=== PATIENT | male | born 1945 | race Caucasian/White ===

== ENCOUNTER 2019-01-15 13:26 | Inpatient (IN) | payer MEDICARE ==
[~2019-01-15 13:26] MED LIST: ISOVUE-370 76%-LOCM 1 ML ONE
[2019-01-15 15:11] LABS: #Eosinphils 0.1 thou/uL (0.0-0.7); #Lymphocytes 0.5 thou/uL (1.20-3.40); #Monocytes 0.3 thou/uL (0.11-0.59); #Neutrophils 4.6 thou/uL (1.40-6.50); %Basophils 0.1 % (0.0-1.0); %Eosinophils 2.4 % (0.0-10.0); %Lymphocytes 8.6 % (21.0-51.0); %Monocytes 4.9 % (0.0-10.0); %Neutrophils 84.1 % (42.0-75.0); Hemoglobin 13.6 g/dL (14.0-18.0); Mean Corpuscular HGB CONC 31.8 g/dL (32.0-36.0); Mean Corpuscular Hemoglobin 29.4 pg (27.0-31.0); Mean Corpuscular Volume 92.6 fL (78.0-98.0); Platelet Count 193 thou/uL (130-400); RBC Distribution Width 17.9 % (11.5-14.5); Red Blood Cell (RBC) Count 4.61 mill/uL (4.70-6.10); White Blood Cell (WBC) Count 5.4 thou/uL (4.8-10.8)
[2019-01-15 15:24] LABS: ALT (SGPT) 7 U/L (8-55); AST (SGOT) 11 U/L (5-34); Albumin 4.5 g/dL (3.4-4.8); Alkaline Phosphatase 152 U/L (40-150); Anion Gap 21 mmol/L (10-20); BUN (Urea Nitrogen) 47 mg/dL (8.4-25.7); Bilirubin, Total 0.8 mg/dL (0.2-1.2); Calc. Creatinine Clearance 0 mL/min (70-130); Calcium 9.3 mg/dL (7.8-10.44); Carbon Dioxide 25 mmol/L (23-31); Chloride 93 mmol/L (98-107); Estimated GFR-MDRD 9; Globulin 4.8 g/dL (2.4-3.5); Glucose 201 mg/dL (83-110); Potassium 3.9 mmol/L (3.5-5.1); Protein, Total 9.3 g/dL (5.8-8.1); Sodium 135 mmol/L (136-145)
[2019-01-15 15:46] LABS: CKMB 2.2 ng/mL (0-6.6)
--- NOTE | 2019-01-15 15:58 | CT ---
CT ABDOMEN AND PELVIS: HISTORY: Abdominal pain and distention. FINDINGS: A small amount of fluid is noted at the left posterior pleural space, with some enhancement and thick ening of the visualized pleura. Parenchymal opacity at the left posteromedial lung base is favored t o represent compressive atelectasis. There is a moderate amount of free fluid throughout the abdomen and pelvis. The liver contour is mame ewhat nodular and irregular. The spleen measures up to 14.4 cm on the axial images. The prostate gl and measures up to 7.8 cm in width. No degenerative changes throughout the lumbar spine. Atrophy of each kidney. IMPRESSION: 1. Moderate amount of ascites. Other findings of portal vein hypertension include moderate splenome ketan and a cirrhotic appearance of the liver. 2. Small amount of left pleural fluid. 3. Thickening and enhancement of the pleura at the left inferior hemithorax raises concern for infla mmation. Clinical correlation regarding other signs and symptoms of infection/inflammation of the le ft pleural fluid is required. 4. Prominent atherosclerosis. 5. Enlarged prostate gland. POS: EMILY
[2019-01-15 19:28] VITALS: BMI 25.7
[2019-01-15] MEDS ORDERED: Acetaminophen 325 MG TAB PO PRN ×2 (19:30→20:00)
[2019-01-15] MEDS ORDERED: Ondansetron PF 4 MG/2 ML Vial IVP PRN ×2 (19:30→20:00)
[2019-01-15] MEDS ORDERED: Ondansetron ODT 4 MG TAB SL PRN (19:30)
[2019-01-15] MEDS ORDERED: Senokot S 8.6-50 MG TAB PO PRN (20:00)
[2019-01-15] MEDS ORDERED: Ondansetron ODT 4 MG TAB PO PRN (20:00)
[2019-01-15] MEDS ORDERED: Guaifenesin DM 100-10/5 ML UDCUP PO PRN (20:00)
[2019-01-15] MEDS ORDERED: Acetaminophen 650 MG Suppository PR PRN (20:00)
[2019-01-15] MEDS ORDERED: Dextrose 5% in Water 1,000 ML IV PRN (20:08)
[2019-01-15] MEDS ORDERED: Dextrose 50% Abboject 50 ML SYRINGE SLOW IVP PRN (20:08)
[2019-01-15] MEDS ORDERED: HumaLOG 300 UNITS/3 ML VIAL SC PRN ×2 (20:08)
[2019-01-15] MEDS: Insulin Glargine 14 UNITS in Pre-Filled Syringe 1 EACH SC SCH ×2 (21:22→21:27)
[2019-01-15] MEDS: Famotidine 20 MG TAB PO SCH (21:22)
[2019-01-15] MEDS: Docusate 100 MG CAP PO SCH (21:23)
--- NOTE | 2019-01-16 02:50 | HP ---
PRIMARY CARE PHYSICIAN: Dr. Dianelys Barragan. OUTPATIENT BOLT LABELER: Dr. Mujica. LOAN BROKER: Dr. Chavarria. CHIEF COMPLAINT: Abdominal swelling. HISTORY OF PRESENT ILLNESS: This is a 73-year-old white male with a known history of coronary artery disease with previous CABG and also end-stage renal disease, on regular hemodialysis. The patient reports that starting about Renny, he started to get increasing swelling in his abdomen, did not have any significant shortness of breath with this. He has had swelling in his lower extremities before from congestive heart failure, but has never had this severely in his abdomen by itself. He also has been feeling palpitations, fast heart rate and then slow heart rate and then fast heart rate alternating ever since Renny time as well. He has had less energy than normal. He went to Dr. Mujica clinic today and was found to be in new onset atrial fibrillation along with having significant ascites and so Dr. Mujica sent him to the emergency room. In the ER, he had a CT of abdomen and pelvis, which showed moderate ascites along with evidence of cirrhosis of the liver. PAST MEDICAL HISTORY: 1. Coronary artery disease. 2. End-stage renal disease, on dialysis. 3. Diabetes mellitus type 2, insulin dependent. 4. Gout. 5. Hypertension. 6. Hyperlipidemia. CURRENT MEDICATIONS: The patient had a medicine list which was copied in the emergency room, but does not have it with him now. Per the ER chart, which I am not certain is accurate, he takes; 1. Allopurinol 300 mg 0.5 tablet daily. 2. Aspirin 81 mg a day. 3. Cardura 8 mg daily. 4. Colchicine 0.6 mg listed as q.4 hours p.r.n. 5. Imdur 60 mg daily. 6. Lantus 14 units each night. 7. Lipitor 20 mg daily. 8. Nifedipine 60 mg daily. 9. Calcium acetate daily. 10. Lutein 20 mg daily. ALLERGIES: EGGS. PAST SURGICAL HISTORY: 1. CABG. 2. Fistula placement. FAMILY HISTORY: Relevant for coronary artery disease. SOCIAL HISTORY: The patient is retired. He is , lives with his . He has a remote history of tobacco, quit more than 40 years ago. No alcohol or illicit drug use. REVIEW OF SYSTEMS: CONSTITUTIONAL: No fevers. He does get cold all the time, especially gets some chills in the morning when his blood sugar drops into the 70s and he feels best when it is around 100. EYES: No double vision or new blurred vision. He did have some worsening of his vision over the last year from cataracts. ENT: No congestion, drainage, or sore throat. CARDIOVASCULAR: See HPI. No chest pain. Just irregular heart rate. PULMONARY: No coughing, wheezing, or shortness of breath. GASTROINTESTINAL: Abdominal distention as per HPI. No nausea or vomiting. No abdominal pain. No diarrhea. He has had a little constipation recently. GENITOURINARY: Still produces a little bit of urine. No dysuria or hematuria. MUSCULOSKELETAL: He has had a little bit of low back pain recently without any radicular symptoms. No muscle aches or joint pains otherwise. SKIN: No rashes or other lesions noted. NEUROLOGIC: No numbness, tingling, or focal weakness. PHYSICAL EXAMINATION: VITAL SIGNS: Blood pressure 164/81, pulse 102, respirations 16, O2 saturation 98% on room air, and temperature 98.3. GENERAL: This is a well-developed, thin white male, in no acute distress. HEENT: Pupils are equal, round, and reactive to light. Oropharynx clear without lesions, erythema, or exudate. NECK: Supple. No lymphadenopathy. No thyroid nodules or enlargement. No severe JVD. HEART: Irregularly irregular rhythm running out on average about 100 beats per minute with 2/6 systolic ejection murmur. LUNGS: Clear to auscultation bilaterally. No wheezes, crackles, or rhonchi. ABDOMEN: Soft, distended with positive fluid wave. Nontender to palpation. No organomegaly or other masses. Normoactive bowel sounds. EXTREMITIES: He has just trace edema to bilateral shins. Good pulses throughout. He is able to move all of his extremities well. SKIN: No rashes or other lesions noted. NEUROLOGIC: He has intact strength and sensation in all extremities. No facial droop. LABORATORY DATA: CBC grossly within normal limits. Complete metabolic panel notable for a sodium of 135, chloride of 93, anion gap of 21, BUN of 47, creatinine of 6.01, and glucose of 201. Bilirubin is normal. Alkaline phosphatase is 152. AST and ALT are normal. Total serum protein is elevated at 9.3, albumin is 4.5. Lactic acid was negative. Troponin was indeterminate at 0.203. CT of abdomen and pelvis with contrast did show moderate ascites, other findings of portal vein hypertension including moderate splenomegaly and a cirrhotic appearance to the liver with small amount of left pleural fluid and thickening enhancement of the pleura of the left inferior hemothorax, concerning for possible inflammation, primary atherosclerosis and large prostate gland. ASSESSMENT: 1. New onset ascites, possibly related to cirrhotic appearing liver though his albumin and bilirubin are normal. He does not have any significant sequelae of cirrhosis on his blood work. It is also very likely that this actually is more of a sequela of chronic congestive heart failure that has been exacerbated by his atrial fibrillation. I will go ahead and have Dr. Mason consult and see the patient and the patient may end up needing further investigations such as a liver biopsy. 2. New onset atrial fibrillation, currently not in a terribly rapid rate. We will continue the patient's current medications for now and we will have Dr. Mujica consult and continue working up this new problem. Given the patient is in diastolic congestive heart failure exacerbation from this, he may benefit from cardioversion. We will leave choice of anticoagulation up to Dr. Mujica. 3. End-stage renal disease, on dialysis. We will consult Dr. Chavarria for continued dialysis. 4. Coronary artery disease with previous coronary artery bypass graft. The patient does have an indeterminate troponin, likely related to his end-stage renal disease. He has no evidence of acute ischemia at this time. 5. Likely diastolic congestive heart failure. We will get an ECHO and consult Dr. Mujica. 6. Hypertension. We will resume the patient's antihypertensives. 7. Hyperlipidemia. We will resume the patient's statin. 8. Gout. We will resume the patient's allopurinol and colchicine. 9. Gastrointestinal prophylaxis. We will put the patient on Pepcid twice a day. 10. Deep venous thrombosis prophylaxis. We will put the patient on sequential compression devices while in bed. 11. Code status. I did discuss this with the patient. He is a full code. His would be his next of kin, her name is Frances Sanchez. There appeared to be some disagreement between them about the code status and also him getting dialysis in general. We will go ahead and have Palliative Care consulted to come talk with him and more further and make certain about his wishes and his medical power of associate attorney. Job ID: [id number] [facility]
[2019-01-16 04:41] LABS: #Eosinphils 0.3 thou/uL (0.0-0.7); #Lymphocytes 0.5 thou/uL (1.20-3.40); #Monocytes 0.3 thou/uL (0.11-0.59); #Neutrophils 3.7 thou/uL (1.40-6.50); %Basophils 0.1 % (0.0-1.0); %Lymphocytes 10.6 % (21.0-51.0); %Monocytes 6.4 % (0.0-10.0); %Neutrophils 75.9 % (42.0-75.0); Hemoglobin 11.7 g/dL (14.0-18.0); Mean Corpuscular HGB CONC 32.1 g/dL (32.0-36.0); Mean Corpuscular Hemoglobin 29.7 pg (27.0-31.0); Mean Corpuscular Volume 92.3 fL (78.0-98.0); Mean Platelet Volume 8.6 fL (7.4-10.4); Platelet Count 159 thou/uL (130-400); RBC Distribution Width 17.7 % (11.5-14.5); Red Blood Cell (RBC) Count 3.94 mill/uL (4.70-6.10); White Blood Cell (WBC) Count 4.9 thou/uL (4.8-10.8)
[2019-01-16 05:07] LABS: Anion Gap 17 mmol/L (10-20); BUN (Urea Nitrogen) 52 mg/dL (8.4-25.7); Calc. Creatinine Clearance 12 mL/min (70-130); Calcium 8.5 mg/dL (7.8-10.44); Carbon Dioxide 25 mmol/L (23-31); Chloride 98 mmol/L (98-107); Estimated GFR-MDRD 8; Glucose 138 mg/dL (83-110); Potassium 4.3 mmol/L (3.5-5.1); Sodium 136 mmol/L (136-145)
[2019-01-16] MEDS ORDERED: Atorvastatin Calcium 10 MG TAB PO SCH (09:00)
[2019-01-16] MEDS: Docusate 100 MG CAP PO SCH ×2 (09:06→21:01)
--- NOTE | 2019-01-16 09:08 | PDOC.PN ---
- Subjective Encounter Start Date: 01/16/19 Encounter Start Time: 10:30 Subjective: Patient without complaint. No SOB. No chest pain. - Objective Resuscitation Status - Order Detail: 01/15/19 19:54 Resuscitation Status Routine Resuscitation Status: FULL: Full Resuscitation Discussed with: Vadim MCWILLIAMS Reviewed: Yes Vital Signs & Weight: Vital Signs (12 hours) Temp Pulse Resp BP Pulse Ox 01/16/19 08:00 98.1 F 52 L 16 120/60 95 01/16/19 03:29 98.8 F 80 20 128/70 93 L Weight Weight 179 lb 8 oz Result Diagrams: 01/16/19 04:20 01/16/19 04:20 Additional Labs: Accuchecks 01/16/19 01/15/19 05:29 20:39 POC Glucose 153 H 179 H Phys Exam - Physical Examination Constitutional: NAD HEENT: moist MMs Respiratory: no wheezing, no rales, no rhonchi Cardiovascular: no significant murmur, irregular Gastrointestinal: non-tender, positive bowel sounds distended, positive fluid wave Neurological: non-focal, moves all 4 limbs Psychiatric: normal affect, A&O x 3 Dx/Plan (1) Cirrhosis of liver with ascites Code(s): K74.60 - UNSPECIFIED CIRRHOSIS OF LIVER; R18.8 - OTHER ASCITES Status : Acute Qualifiers: Hepatic cirrhosis type: unspecified hepatic cirrhosis Qualified Code(s): K74.60 - Unspecified cirrhosis of liver; R18.8 - Other ascites Comment: Dr. Mason consulted, paracentesis with fluid studies ordered (2) New onset atrial fibrillation Code(s): I48.91 - UNSPECIFIED ATRIAL FIBRILLATION Status: Acute Comment: Dr. Mujica consulted, ECHO pending, plan for pacemaker today (3) Diastolic congestive heart failure Code(s): I50.30 - UNSPECIFIED DIASTOLIC (CONGESTIVE) HEART FAILURE Status: Chronic Qualifiers: Heart failure chronicity: acute on chronic Qualified Code(s): I50.33 - Acute on chronic diastolic (congestive) heart failure (4) Hypertension Code(s): I10 - ESSENTIAL (PRIMARY) HYPERTENSION Status: Chronic (5) Hyperlipidemia Code(s): E78.5 - HYPERLIPIDEMIA, UNSPECIFIED Status: Chronic (6) Gout Code(s): M10.9 - GOUT, UNSPECIFIED Status: Chronic - Plan cont current plan of care, PT/OT, DVT proph w/SCDs * . - Discharge Day Encounter end time: 10:40
[2019-01-16 09:36] LABS: INR-International Normal Ratio 1.2; Prothrombin Time 15.2 SEC (12.0-14.7)
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
[2019-01-16] MEDS ORDERED: Iopamidol 370 76% 50 ML VIAL FS ONE (10:38)
[2019-01-16 11:20] LABS: HBSAg Index 0.27 S/CO (0-0.99); Hep B Surf Ag Non-Reactive S/CO (NonReactive)
[2019-01-16] MEDS ORDERED: Gentamicin 80 MG/2 ML VIAL ONE (14:14)
[2019-01-16] MEDS ORDERED: CEFAZOLIN 1 GM VIAL ONE (14:14)
[2019-01-16] MEDS ORDERED: Lidocaine 1% (PF) 30 ML VIAL ONE (15:56)
[2019-01-16] MEDS: NIFEdipine XL 60 MG TAB PO SCH (16:39)
[2019-01-16] MEDS: Doxazosin Mesylate 4 MG TAB PO SCH (16:39)
[2019-01-16] MEDS: Allopurinol 300 MG TAB PO SCH (16:39)
[2019-01-16] MEDS: Aspirin 81 mg Enteric Coated Tablet PO SCH (16:39)
--- NOTE | 2019-01-16 17:58 | RAD ---
CHEST ONE VIEW: 01/16/19 INDICATION: History of cardiac device placement. COMPARISON: Prior exam dated 09/18/14. FINDINGS: There is a dual lead pacemaker along the right chest wall. No pneumothorax is evident. There is a sma ll left pleural effusion and left basilar air space opacity which is nonspecific. The patient had a l eft sided pleural effusion on the comparison examination on 09/18/14. This was seen on a comparison C T dated 01/15/19. There is some opacity within the right lower lobe which may reflect rounded atelecta sis or pneumonia. Continued radiographic followup is recommended. IMPRESSION: 1. Interval placement of a right sided pacemaker. 2. Persistent small left pleural effusion with a left basilar air space opacity may reflect atel ectasis or pneumonia. Continued radiographic followup is recommended. 3. No pneumothorax demonstrated. POS: CORNEL
--- NOTE | 2019-01-16 18:11 | CCL ---
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 He was advised to undergo dual-chamber pacemaker inser tion. He was taken to cardiac lab specialist where he underwent the procedure today without difficulties or compl ications. He was implanted on the right infraclavicular area as the patient has a shunt on the left side. He tolerated the procedure well. There were no difficulties or complications encountered. He wa s implanted with a dual chamber pacemaker from [employer], an [place] XT which is MRI compatible device with atrial therapies. The pacemaker was set with the upper rate was set at 130. The lower rate was s et at 60. There were no difficulties or complications encountered.
[2019-01-16] MEDS: Atorvastatin Calcium 10 MG TAB PO SCH (21:00)
[2019-01-16] MEDS: HYDROcodone/Acetaminophen 5/325 mg Tablet PO PRN (21:00)
[2019-01-16] MEDS: Famotidine 20 MG TAB PO SCH (21:00)
[2019-01-16] MEDS: Insulin Glargine 14 UNITS in Pre-Filled Syringe 1 EACH SC SCH (21:02)
[2019-01-17] MEDS: HYDROcodone/Acetaminophen 5/325 mg Tablet PO PRN ×4 (03:01→19:28)
--- NOTE | 2019-01-17 03:08 | CON ---
DATE OF CONSULTATION: 01/16/2019 REASON FOR CONSULTATION: New onset ascites, possible cirrhosis. CONSULTING PHYSICIAN: Dr. Parth Alarcon. HISTORY OF PRESENT ILLNESS: The patient is a 73-year-old male with past medical history of coronary artery disease status post CABG, end-stage renal disease on hemodialysis, diabetes, gout, hypertension, and hyperlipidemia, presenting with increased abdominal distention and ascites. He states that he was in his usual state of health until October 2018 when he began to experience increased abdominal distention that has progressively worsened over the last 2 months. With this increased abdominal distention, he has also experienced an increased weight gain despite hemodialysis and the removal of approximately 2 L of fluid per episode of hemodialysis. He does endorse some increased dysphagia during the same time, characterized this sensation, the food is getting stuck in the back of his mouth when he attempts to eat larger bites of food. However, when he does adequately chew his food or consume in smaller bites, he does not experience any increased dysphagia. He does have associated increase change in his voice as well as rare episodes of heartburn during the same time. He also endorses increased bilateral lower extremity edema and swelling in his feet over the last 2 to 3 months as well. He denies any significant use of alcohol, consuming approximately 1 to 2 beers every 6 months. He denies any recent medication changes, that might further contribute to his current clinical situation. He currently denies any nausea, vomiting, fever, chills, GI bleeding, odynophagia, diarrhea, constipation, encephalopathy, or jaundice. REVIEW OF SYSTEMS: A 10-category review of systems was obtained with all responses negative except for the pertinent positives as listed in HPI. PAST MEDICAL HISTORY: As per HPI. PAST SURGICAL HISTORY: CABG and upper extremity arteriovenous fistula placement. SOCIAL HISTORY: Denies any tobacco or illicit drug use. Drinks approximately 1 to 2 beers every 6 months. FAMILY HISTORY: Denies any GI malignancies. OUTPATIENT MEDICATIONS: Reviewed. ALLERGIES: EGGS. PHYSICAL EXAMINATION: VITAL SIGNS: Temperature 97.8, pulse 84, blood pressure 144/67, respiratory rate 20, and saturating 93% on room air. GENERAL: The patient is lying in bed, in no acute distress. Alert and oriented x4. NECK: Supple. HEENT: Normocephalic, atraumatic. CARDIOVASCULAR: Regular rate and rhythm with no discernible murmurs, gallops, or rubs. RESPIRATORY: Clear to auscultation bilaterally with no discernible wheezes or rales. ABDOMEN: Normoactive bowel sounds. Soft, nontender to palpation, but increased abdominal distention with positive shifting dullness. EXTREMITIES: Trace bilateral lower extremity edema extending to the mid oliva. No cyanosis or clubbing. LABORATORY DATA: CBC with a white blood cell count of 4.9, Hemoglobin 11.7, hematocrit 36.4, platelets 159, and INR 1.2. Chemistry with a sodium of 136, potassium 4.3, chloride 98, CO2 of 25, BUN 52, creatinine 6.68, glucose 138, AST 11, ALT 7, alkaline phosphatase 152, and total bilirubin 0.8. IMAGING DATA: CT of the abdomen and pelvis obtained on January 15, 2019, showed a moderate amount of free fluid within the abdomen consistent with ascites. There was also a change in the liver contour that was nodular and irregular concerning for the presence of cirrhosis. Also seen was a small amount of left-sided pleural fluid and thickening and enhancement of the pleura of the left inferior hemithorax raising concern for inflammation or infection. ASSESSMENT AND PLAN: The patient is a 73-year-old male with past medical history of coronary artery disease status post coronary artery bypass grafting, end-stage renal disease on hemodialysis, diabetes, gout, hypertension, and hyperlipidemia, presenting with new onset ascites and a liver morphology on imaging concerning for cirrhosis. New onset ascites. The patient is presenting with a history of increased abdominal distention, increased weight, and increased lower extremity edema that has been present since October 2018. On admission to the ER here at [facility], he had a CT scan performed that showed irregular and nodular contours to the liver, concerning for the presence of cirrhosis. However, he does also have a concurrent history of coronary artery disease, as well as end-stage renal disease, which could contribute to the presence of ascites seen on both imaging and physical examination today. At this time, the differential could include cirrhosis of the liver (albeit unlikely given preserved hepatic function with normal T bilirubin and normal albumin), end-stage renal disease with hemodialysis could contribute to his ascites, nephrotic syndrome, congestive heart failure, congestive hepatopathy, infectious etiology (unlikely), and/or GI neoplasm. RECOMMENDATIONS: 1. We would obtain a paracentesis with evaluation of the ascites fluid for albumin, protein, cell count, and culture to help further characterize this ascites and help narrowing the possibility/differential of causative etiologies. 2. We would continue low-sodium diet to prevent further formation of ascites. 3. We would work in conjunction with inpatient lion tamer given that the ascitic fluid would most likely be best drawn off during hemodialysis. 4. We would continue to trend LFTs daily for possible liver dysfunction as well as INR. 5. If the ascites fluid is consistent with portal hypertension, I would then proceed with a full liver workup at that time to evaluate the origin of cirrhosis of the liver. 6. We will continue to follow. Please call with any questions. Job ID: [id number]
--- NOTE | 2019-01-17 07:12 | PRG ---
DATE OF SERVICE: 01/17/2019 SERVICE: Renal Medicine. SUBJECTIVE: Mr. Hernandez is a 73-year-old white male with ESRD, was admitted for new onset ascites. He was found on imaging to have a cirrhosis. GI consult has been done. In the interim, he also had a pacemaker placed. He underwent hemodialysis yesterday without any difficulty. The plan today is for him to undergo a diagnostic paracentesis. The patient voices no new complaints. He denies any chest pain or shortness of breath. OBJECTIVE: VITAL SIGNS: Blood pressure is 143/69, heart rate 60, respiratory rate 15, temperature 98.6, and pulse ox 96%. GENERAL: Awake, alert, comfortable, not in distress. SKIN: Adequate turgor. HEENT: Pinkish conjunctivae. Anicteric sclerae. No neck mass. No carotid bruits. No JVD. CHEST: No deformities. LUNGS: Clear breath sounds. No wheezing. No crackles. HEART: Normal sinus rhythm. No murmur. No gallops. No rubs. ABDOMEN: Globular, soft, nontender. No masses. Positive for ascites. EXTREMITIES: No edema. MEDICATIONS: Medications of January 17, 2019, were reviewed. LABORATORY DATA: Laboratories of January 16, 2019; white count 4.9, hemoglobin 11.7. Sodium 136, potassium 4.3, chloride 98, carbon dioxide 25, BUN 52, creatinine 6.68, glucose 138, and calcium 8.5. ASSESSMENT AND PLAN: 1. New onset ascites/cirrhosis-GI evaluating the patient. He is scheduled for diagnostic paracentesis. 2. Cardiac arrhythmias-the patient is status post pacemaker placement. 3. End-stage renal disease, stable. We will continue three times a week hemodialysis. No heparin will be used. Fluid removal again as tolerated by the patient. We will recheck basic metabolic, CBC in a.m. Job ID: [id number]
[2019-01-17] MEDS: NIFEdipine XL 60 MG TAB PO SCH (08:24)
[2019-01-17] MEDS ORDERED: Sodium Bicarbonate 2.5 MEQ/5 ML VIAL ONE (08:57)
[2019-01-17] MEDS: Allopurinol 300 MG TAB PO SCH (09:49)
[2019-01-17] MEDS: Docusate 100 MG CAP PO SCH ×2 (09:51→21:17)
[2019-01-17] MEDS: Doxazosin Mesylate 4 MG TAB PO SCH (09:51)
[2019-01-17] MEDS: Aspirin 81 mg Enteric Coated Tablet PO SCH (09:54)
[2019-01-17 10:58] LABS: HBSAg Index 0.25 S/CO (0-0.99); Hep A IgM AB Non-Reactive (NonReactive); Hep B Surf Ag Non-Reactive S/CO (NonReactive); Hep C IgG Ab Non-Reactive (NonReactive); Hep C Index 0.06 S/CO (0-0.79); Hepatitis B Core IgM Abs Non-Reactive (NonReactive)
--- NOTE | 2019-01-17 12:09 | ULT ---
ULTRASOUND GUIDED PARACENTESIS: CLINICAL INDICATION: Ascites. PROCEDURE: After informed consent had been obtained, the patient was escorted to the ultrasound suite and placed in a supine position. The abdomen was imaged which revealed adequate ascites for the procedure. Th e skin of the abdomen was then prepped and draped in the standard sterile fashion and the skin surfac e, subcutaneous tissues, and peritoneal lining of the abdomen were anesthetized with 1% Lidocaine buf fered with sodium bicarbonate. A right lower quadrant approach was selected. A small skin incision was made at the site of topical anesthesia. Subsequently, under real-time ultrasound guidance a IV Diagnostics catheter was advanced through the incision site into the peritoneal cavity. Ascites was present at the catheter hub. The catheter was then secured to vacuum sealed sterile containers, via sterile tub ing and subsequently 4 L of clear, yellow ascites was drained from the patient. The patient was then removed from the patient. The patient tolerated the procedure well without evidence of complication . Postprocedure imaging revealed no complication and interval reduction in volume of ascites. The p atient was monitored by a radiology nurse and was stable in condition. Specimen was sent to laboratory for analysis per ordering physician request. IMPRESSION: Technically successful ultrasound-guided paracentesis, as above. POS: [facility]
[2019-01-17 13:45] LABS: BF Color Yellow; BF RBC Count - Manual 35 /cumm; BF WBC/Nonhematics Ct. - Manua 140 /cumm; Body Fluid Source Peritoneal Fluid; Clarity Hazy (Clear); Tube # EDTA
[2019-01-17 13:49] LABS: BF Segmented Neutrophils 5 %; Cell Count Non Hematic 78 %; Eosinophils 1 %; Lymphocytes 14 %
--- NOTE | 2019-01-17 14:08 | PDOC.PN ---
- Subjective Encounter Start Date: 01/17/19 Encounter Start Time: 08:45 Subjective: feels better after paracentesis -: no dizzines or abd pain - Objective Resuscitation Status - Order Detail: 01/15/19 19:54 Resuscitation Status Routine Resuscitation Status: FULL: Full Resuscitation Discussed with: Patient POPPY Reviewed: Yes Vital Signs & Weight: Vital Signs (12 hours) Temp Pulse Pulse Pulse Resp BP BP 01/17/19 11:10 98.0 F 69 17 01/17/19 11:00 68 69 141/67 H 01/17/19 09:50 97.8 F 61 17 01/17/19 08:24 62 189/83 H 01/17/19 08:20 97.7 F 62 17 01/17/19 03:55 98.6 F 60 15 BP BP Pulse Ox 01/17/19 11:10 143/59 H 96 01/17/19 11:00 143/59 H 01/17/19 09:50 180/81 H 97 01/17/19 08:24 01/17/19 08:20 189/83 H 96 01/17/19 03:55 143/69 H 96 Weight Weight 179 lb 8 oz I&O: 01/16/19 01/17/19 01/18/19 06:59 06:59 06:59 Intake Total 480 Output Total 50 Balance 430 Result Diagrams: 01/16/19 04:20 01/16/19 04:20 Additional Labs: Accuchecks 01/17/19 01/17/19 01/17/19 11:15 08:08 05:52 POC Glucose 101 71 76 01/16/19 01/16/19 20:45 17:25 POC Glucose 221 H 126 H Phys Exam - Physical Examination HEENT: PERRLA, moist MMs Neck: no JVD, supple Respiratory: no wheezing, no rales Cardiovascular: RRR, no significant murmur Gastrointestinal: soft, non-tender, positive bowel sounds Musculoskeletal: pulses present, edema present Neurological: non-focal, moves all 4 limbs Psychiatric: normal affect, A&O x 3 Dx/Plan (1) Tachy-jaimee syndrome Code(s): I49.5 - SICK SINUS SYNDROME Status: Acute Comment: s/p dual chamber medtronic [place] XT mri compatible pcm (2) ESRD (end stage renal disease) on dialysis Code(s): N18.6 - END STAGE RENAL DISEASE; Z99.2 - DEPENDENCE ON RENAL DIALYSIS Status: Chronic (3) Afib Code(s): I48.91 - UNSPECIFIED ATRIAL FIBRILLATION Status: Acute Qualifiers: Atrial fibrillation type: paroxysmal Qualified Code(s): I48.0 - Paroxysmal atrial fibrillation (4) CAD (coronary artery disease) Code(s): I25.10 - ATHSCL HEART DISEASE OF [place] CORONARY ARTERY W/O ANG PCTRS Status: Chronic Qualifiers: Coronary Disease-Associated Artery/Lesion type: bypass graft [place] vs. transplanted heart: [place] heart Associated angina: without angina Qualified Code(s): I25.810 - Atherosclerosis of coronary artery bypass graft(s) without angina pectoris (5) Demand ischemia of myocardium Code(s): I24.8 - OTHER FORMS OF ACUTE ISCHEMIC HEART DISEASE Status: Acute (6) Cirrhosis of liver with ascites Code(s): K74.60 - UNSPECIFIED CIRRHOSIS OF LIVER; R18.8 - OTHER ASCITES Status : Chronic Qualifiers: Hepatic cirrhosis type: unspecified hepatic cirrhosis Qualified Code(s): K74.60 - Unspecified cirrhosis of liver; R18.8 - Other ascites Comment: s/p paracentesis with removal of 4 liters 01/17/2019 (7) Diastolic congestive heart failure Code(s): I50.30 - UNSPECIFIED DIASTOLIC (CONGESTIVE) HEART FAILURE Status: Chronic Qualifiers: Heart failure chronicity: acute on chronic Qualified Code(s): I50.33 - Acute on chronic diastolic (congestive) heart failure (8) Gout Code(s): M10.9 - GOUT, UNSPECIFIED Status: Chronic Qualifiers: Gout site: unspecified site Gout etiology: unspecified cause (9) Hyperlipidemia Code(s): E78.5 - HYPERLIPIDEMIA, UNSPECIFIED Status: Chronic Qualifiers: Hyperlipidemia type: mixed hyperlipidemia Qualified Code(s): E78.2 - Mixed hyperlipidemia (10) Hypertension Code(s): I10 - ESSENTIAL (PRIMARY) HYPERTENSION Status: Chronic Qualifiers: Hypertension type: essential hypertension Qualified Code(s): I10 - Essential (primary) hypertension - Plan w/u for ascites is ongoing, no signs of hepatitis -: continue toprol xl, procardia xl, asp, lipitor, imdur -: allopurinol, cardura and lantus -: to amb as tolerated -: had HD yesterday * . Review of Systems - Medications/Allergies Allergies/Adverse Reactions: Allergies Allergy/AdvReac Type Severity Reaction Status Date / Time egg Allergy Verified 12/26/13 21:31 No Known Drug Allergies Allergy Verified 12/26/13 21:31 Medications: Current Medications Acetaminophen (Tylenol) 650 mg PO Q4H PRN PRN Reason: Headache/Fever/Mild Pain (1-3) Acetaminophen (Tylenol) 650 mg DE Q4H PRN PRN Reason: Headache/Fever/Mild Pain (1-3) Hydrocodone Bitart/Acetaminophen ([place] 5/325) 1 tab PO Q4H PRN PRN Reason: Mild Pain (1-3) Last Admin: 01/17/19 12:43 Dose: 1 tab Allopurinol (Zyloprim) 150 mg PO DAILY [facility] Last Admin: 01/17/19 09:49 Dose: 150 mg Amiodarone HCl (Cordarone) 400 mg PO BID [facility] Aspirin (Ecotrin) 81 mg PO DAILY [facility] Last Admin: 01/17/19 09:54 Dose: 81 mg Atorvastatin Calcium (Lipitor) 10 mg PO [facility] Last Admin: 01/16/19 21:00 Dose: 10 mg Dextrose/Water (Dextrose 50%) 25 gm SLOW IVP PRN PRN PRN Reason: Hypoglycemia Docusate Sodium (Colace) 100 mg PO BID [facility] Last Admin: 01/17/19 09:51 Dose: Not Given Doxazosin Mesylate (Cardura) 8 mg PO DAILY [facility] Last Admin: 01/17/19 09:51 Dose: 8 mg Famotidine (Pepcid) 20 mg PO QPM [facility] Last Admin: 01/16/19 21:00 Dose: 20 mg Glucagon (Glucagon) 1 mg IM PRN PRN PRN Reason: Hypoglycemia Guaifenesin/Dextromethorphan (Robitussin Dm) 15 ml PO Q4H PRN PRN Reason: Cough Insulin Glargine 14 units/ (Miscellaneous Medication) 0.14 mls @ 0 mls/hr SC [facility] Last Admin: 01/16/19 21:02 Dose: 0.11 mls Dextrose/Water (D5w) 1,000 mls @ 0 mls/hr IV .Q0M PRN PRN Reason: Hypoglycemia Insulin Human Lispro (Humalog) 0 units SC .MILD SLIDING SCALE PRN PRN Reason: Mild Correctional Scale Insulin Human Lispro (Humalog) 0 units SC .BEDTIME SLIDING SC PRN PRN Reason: Bedtime Correctional Scale Isosorbide Mononitrate (Imdur) 60 mg PO DAILY [facility] Last Admin: 01/17/19 09:54 Dose: 60 mg Nifedipine (Procardia Xl) 60 mg PO DAILY [facility] Last Admin: 01/17/19 08:24 Dose: 60 mg Ondansetron HCl (Zofran Odt) 4 mg PO Q6H PRN PRN Reason: Nausea/Vomiting Ondansetron HCl (Zofran) 4 mg IVP Q6H PRN PRN Reason: Nausea/Vomiting Senna/Docusate Sodium (Senokot S) 2 tab PO BID PRN PRN Reason: Constipation Sodium Chloride (Flush - Normal Saline) 10 ml IVF Q12HR [facility] Last Admin: 01/17/19 09:55 Dose: 10 ml Sodium Chloride (Flush - Normal Saline) 10 ml IVF PRN PRN PRN Reason: Saline Flush
--- NOTE | 2019-01-17 17:03 | EKG ---
Test Reason : Blood Pressure : / mmHG Vent. Rate : 061 BPM Atrial Rate : 061 BPM P-R Int : 112 ms QRS Dur : 168 ms QT Int : 552 ms P-R-T Axes : 071 -70 097 degrees QTc Int : 555 ms AV sequential or dual chamber electronic pacemaker When compared with ECG of 15-JAN-2019 13:33, (Unconfirmed) Electronic ventricular pacemaker has replaced Atrial flutter Vent. rate has decreased BY 47 BPM Confirmed by KENNEDI BLOOM ([id number]) on 01/17/2019 5:02:40 PM Referred By: LUIZA Confirmed By:KENNEDI BLOOM
[2019-01-17] MEDS: Famotidine 20 MG TAB PO SCH (21:17)
[2019-01-17] MEDS: Atorvastatin Calcium 10 MG TAB PO SCH (21:18)
[2019-01-17] MEDS: Amiodarone 200 MG TAB PO SCH (21:18)
[2019-01-17] MEDS: Insulin Glargine 14 UNITS in Pre-Filled Syringe 1 EACH SC SCH (21:20)
--- NOTE | 2019-01-17 23:21 | PRG ---
DATE OF SERVICE: 01/17/2019 REASON FOR CONSULTATION: New onset ascites. SUBJECTIVE: The patient underwent paracentesis today with removal of approximately 4 L of ascitic fluid that was sent for analysis. After the paracentesis, he states that he is feeling much better. Currently, he denies any nausea, vomiting, fever, chills, diarrhea, constipation, or abdominal pain. OBJECTIVE: VITAL SIGNS: Temperature 97.6, pulse 61, blood pressure 129/61, respiratory rate 14, saturating 100% on room air. GENERAL: The patient was sitting at bedside, in no acute distress. Alert and oriented x4. CARDIOVASCULAR: Regular rate and rhythm. RESPIRATORY: Clear to auscultation bilaterally. ABDOMEN: Normoactive bowel sounds. Soft, nontender to palpation. [id number] abdominal distention with positive shifting dullness. EXTREMITIES: Trace bilateral lower extremity edema extending to mid oliva. LABORATORY DATA: Analysis of the peritoneal fluid yielded a white blood cell count of 140, of which 5% were PMNs. Fluid albumin is still pending at this time but total protein was noted at 4.7, which is relatively high. ASSESSMENT AND PLAN: The patient is a 73-year-old male with past medical history of coronary artery disease status post coronary artery bypass grafting, end-stage renal disease on hemodialysis, diabetes, gout, hypertension and hyperlipidemia, presenting with new onset ascites and liver morphology of imaging concerning for cirrhosis, but paracentesis fluid indicating a more cardiac etiology. New onset ascites. The patient is presenting with a history of increased abdominal distention, increased weight, and increased lower extremity edema that has been present since October 2018. On admission to [facility] during this admission, he was noted to have an irregular contour to the liver, concerning for the presence of cirrhosis. However, the patient underwent paracentesis on January 17, 2019, which was negative for the presence of SBP and also had a high fluid protein count more consistent with congestive heart failure rather than portal hypertension. At this time, based on the fluid analysis of the ascitic fluid, his new onset ascites is more likely due to congestive heart failure, which is also seen in his preserved hepatic function. Given the cirrhotic morphology on imaging, he may have an element of congestive hepatopathy related to congestive heart failure but at this time, I do not think this is the likely etiology for his ascites. RECOMMENDATIONS: 1. We would continue a low-sodium diet to prevent further formation of ascites from any etiology. 2. Given his history of end-stage renal disease, further fluid removal of his ascitic fluid would be best achieved through hemodialysis. 3. Given the higher likelihood of a cardiac origin of his ascites, a full liver workup is not indicated at this time. We will sign off at this time. Please call with any additional questions. Job ID: [id number]
[2019-01-18] MEDS: HYDROcodone/Acetaminophen 5/325 mg Tablet PO PRN ×3 (01:44→21:14)
[2019-01-18 06:23] LABS: #Eosinphils 0.4 thou/uL (0.0-0.7); #Lymphocytes 0.5 thou/uL (1.20-3.40); #Monocytes 0.5 thou/uL (0.11-0.59); #Neutrophils 4.2 thou/uL (1.40-6.50); %Basophils 0.7 % (0.0-1.0); %Eosinophils 6.7 % (0.0-10.0); %Lymphocytes 9.5 % (21.0-51.0); %Monocytes 8.4 % (0.0-10.0); %Neutrophils 74.7 % (42.0-75.0); Hemoglobin 10.2 g/dL (14.0-18.0); Mean Corpuscular HGB CONC 32.4 g/dL (32.0-36.0); Mean Corpuscular Hemoglobin 30.2 pg (27.0-31.0); Mean Corpuscular Volume 93.1 fL (78.0-98.0); Mean Platelet Volume 9.3 fL (7.4-10.4); Platelet Count 142 thou/uL (130-400); RBC Distribution Width 17.3 % (11.5-14.5); Red Blood Cell (RBC) Count 3.38 mill/uL (4.70-6.10); White Blood Cell (WBC) Count 5.7 thou/uL (4.8-10.8)
[2019-01-18 06:31] LABS: Anion Gap 13 mmol/L (10-20); BUN (Urea Nitrogen) 46 mg/dL (8.4-25.7); Calc. Creatinine Clearance 12 mL/min (70-130); Carbon Dioxide 29 mmol/L (23-31); Chloride 98 mmol/L (98-107); Estimated GFR-MDRD 8; Glucose 163 mg/dL (83-110); Potassium 4.4 mmol/L (3.5-5.1); Sodium 136 mmol/L (136-145)
[2019-01-18] MEDS: Allopurinol 300 MG TAB PO SCH (08:37)
[2019-01-18] MEDS: Doxazosin Mesylate 4 MG TAB PO SCH (08:37)
[2019-01-18] MEDS: Amiodarone 200 MG TAB PO SCH ×2 (08:37→21:16)
[2019-01-18] MEDS: Aspirin 81 mg Enteric Coated Tablet PO SCH (08:38)
[2019-01-18] MEDS: NIFEdipine XL 60 MG TAB PO SCH (08:38)
[2019-01-18] MEDS: Docusate 100 MG CAP PO SCH ×2 (08:38→21:13)
--- NOTE | 2019-01-18 10:54 | PRG ---
DATE OF SERVICE: SERVICE: Renal Medicine. SUBJECTIVE: Mr. Hernandez is a 73-year-old white male with ESRD - on maintenance hemodialysis and admitted for new onset ascites with ? of cirrhosis. He did undergo a pacemaker placement by his tube skiver. In addition, he has undergone a 4 L paracentesis. GI is also following. He is currently undergoing dialysis. I am at the bedside supervising his dialysis. He voices no new complaints. He denies any chest pain or shortness of breath. OBJECTIVE: VITAL SIGNS: Blood pressure 123/61, heart rate 60, respiratory rate 18, temperature 98, and pulse ox 98%. GENERAL: Noted to be awake, alert, comfortable, not in distress. SKIN: Adequate turgor. HEENT: He has pinkish conjunctivae. Anicteric sclerae. NECK: No neck mass. No carotid bruits. No JVD. CHEST: No deformities. LUNGS: Clear breath sounds. HEART: Normal sinus rhythm. No murmurs, no gallops, no rubs. ABDOMEN: Globular, soft, nontender. No masses. EXTREMITIES: Trace edema. MEDICATIONS: Medications of January 18, 2019, was reviewed. LABORATORY DATA: Laboratories of January 18, 2019; sodium 136, potassium 4.4, chloride 98, carbon dioxide 29, BUN 46, creatinine 6.69, glucose 163, calcium 8.0. White count 5.7, hemoglobin 10.2. ASSESSMENT AND PLAN: 1. New onset ascites - status post 4 L paracentesis. The feeling by GI disease may not be related to his cirrhosis at all. We are attempting to max out fluid removal as tolerated by the patient with the dialysis. 2. Cirrhosis - this could be secondary to chronic passive congestive heart failure. GI following. Please note, the patient is status post pacemaker placement. 3. End-stage renal disease, stable. We will continue current hemodialysis regimen of three times a week. Again max out fluid removal due to his ascites. Overall agree with current management. Job ID: [id number]
--- NOTE | 2019-01-18 11:17 | PDOC.PN ---
- Subjective Encounter Start Date: 01/18/19 Encounter Start Time: 08:30 Subjective: no sob, feels better -: no palp or chest pain - Objective Resuscitation Status - Order Detail: 01/15/19 19:54 Resuscitation Status Routine Resuscitation Status: FULL: Full Resuscitation Discussed with: Vadim MCWILLIAMS Reviewed: Yes Vital Signs & Weight: Vital Signs (12 hours) Temp Pulse Resp BP Pulse Ox 01/18/19 08:33 98.0 F 60 18 123/61 98 01/18/19 08:00 98 01/18/19 04:00 99.7 F H 60 18 133/64 94 L Weight Weight 179 lb 8 oz I&O: 01/17/19 01/18/19 01/19/19 06:59 06:59 06:59 Intake Total 480 1240 Output Total 50 100 Balance 430 1140 Result Diagrams: 01/18/19 05:23 01/18/19 05:23 Additional Labs: Accuchecks 01/18/19 01/17/19 01/17/19 05:32 20:19 16:56 POC Glucose 194 H 158 H 238 H 01/17/19 11:15 POC Glucose 101 Phys Exam - Physical Examination HEENT: PERRLA, moist MMs Neck: no JVD, supple Respiratory: no wheezing, no rales Cardiovascular: RRR, no significant murmur Gastrointestinal: soft, non-tender, positive bowel sounds ascites++ Musculoskeletal: no edema, pulses present Neurological: non-focal, moves all 4 limbs Psychiatric: normal affect, A&O x 3 Dx/Plan (1) Tachy-jaimee syndrome Code(s): 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 - SICK SINUS SYNDROME Status: Acute Comment: s/p dual chamber medtronic [place] XT mri compatible pcm (2) ESRD (end stage renal disease) on dialysis Code(s): N18.6 - END STAGE RENAL DISEASE; Z99.2 - DEPENDENCE ON RENAL DIALYSIS Status: Chronic (3) Afib Code(s): I48.91 - UNSPECIFIED ATRIAL FIBRILLATION Status: Acute Qualifiers: Atrial fibrillation type: paroxysmal Qualified Code(s): I48.0 - Paroxysmal atrial fibrillation (4) CAD (coronary artery disease) Code(s): I25.10 - ATHSCL HEART DISEASE OF [place] CORONARY ARTERY W/O ANG PCTRS Status: Chronic Qualifiers: Coronary Disease-Associated Artery/Lesion type: bypass graft [place] vs. transplanted heart: [place] heart Associated angina: without angina Qualified Code(s): I25.810 - Atherosclerosis of coronary artery bypass graft(s) without angina pectoris (5) Demand ischemia of myocardium Code(s): I24.8 - OTHER FORMS OF ACUTE ISCHEMIC HEART DISEASE Status: Acute (6) Cirrhosis of liver with ascites Code(s): K74.60 - UNSPECIFIED CIRRHOSIS OF LIVER; R18.8 - OTHER ASCITES Status : Chronic Qualifiers: Hepatic cirrhosis type: unspecified hepatic cirrhosis Qualified Code(s): K74.60 - Unspecified cirrhosis of liver; R18.8 - Other ascites Comment: s/p paracentesis with removal of 4 liters 01/17/2019 (7) Diastolic congestive heart failure Code(s): I50.30 - UNSPECIFIED DIASTOLIC (CONGESTIVE) HEART FAILURE Status: Chronic Qualifiers: Heart failure chronicity: acute on chronic Qualified Code(s): I50.33 - Acute on chronic diastolic (congestive) heart failure (8) Gout Code(s): M10.9 - GOUT, UNSPECIFIED Status: Chronic Qualifiers: Gout site: unspecified site Gout etiology: unspecified cause (9) Hyperlipidemia Code(s): E78.5 - HYPERLIPIDEMIA, UNSPECIFIED Status: Chronic Qualifiers: Hyperlipidemia type: mixed hyperlipidemia Qualified Code(s): E78.2 - Mixed hyperlipidemia (10) Hypertension Code(s): I10 - ESSENTIAL (PRIMARY) HYPERTENSION Status: Chronic Qualifiers: Hypertension type: essential hypertension Qualified Code(s): I10 - Essential (primary) hypertension - Plan echo results are pending, needs optimizing meds in view of ascites -: is on procardia xl, amiodarone, imdur, lantus, cardura -: is getting max fluid removal with HD -: await cardio input, ascites is beginning to fill again -: is ambulating in room * . Review of Systems - Medications/Allergies Allergies/Adverse Reactions: Allergies Allergy/AdvReac Type Severity Reaction Status Date / Time egg Allergy Verified 12/26/13 21:31 No Known Drug Allergies Allergy Verified 12/26/13 21:31 Medications: Current Medications Acetaminophen (Tylenol) 650 mg PO Q4H PRN PRN Reason: Headache/Fever/Mild Pain (1-3) Acetaminophen (Tylenol) 650 mg DC Q4H PRN PRN Reason: Headache/Fever/Mild Pain (1-3) Hydrocodone Bitart/Acetaminophen ([place] 5/325) 1 tab PO Q4H PRN PRN Reason: Mild Pain (1-3) Last Admin: 01/18/19 01:44 Dose: 1 tab Allopurinol (Zyloprim) 150 mg PO DAILY [facility] Last Admin: 01/18/19 08:37 Dose: 150 mg Amiodarone HCl (Cordarone) 400 mg PO BID [facility] Last Admin: 01/18/19 08:37 Dose: 400 mg Aspirin (Ecotrin) 81 mg PO DAILY [facility] Last Admin: 01/18/19 08:38 Dose: 81 mg Atorvastatin Calcium (Lipitor) 10 mg PO [facility] Last Admin: 01/17/19 21:18 Dose: 10 mg Dextrose/Water (Dextrose 50%) 25 gm SLOW IVP PRN PRN PRN Reason: Hypoglycemia Docusate Sodium (Colace) 100 mg PO BID [facility] Last Admin: 01/18/19 08:38 Dose: Not Given Doxazosin Mesylate (Cardura) 8 mg PO DAILY [facility] Last Admin: 01/18/19 08:37 Dose: 8 mg Famotidine (Pepcid) 20 mg PO QPM [facility] Last Admin: 01/17/19 21:17 Dose: 20 mg Glucagon (Glucagon) 1 mg IM PRN PRN PRN Reason: Hypoglycemia Guaifenesin/Dextromethorphan (Robitussin Dm) 15 ml PO Q4H PRN PRN Reason: Cough Insulin Glargine 14 units/ (Miscellaneous Medication) 0.14 mls @ 0 mls/hr SC [facility] Last Admin: 01/17/19 21:20 Dose: 0.08 mls Dextrose/Water (D5w) 1,000 mls @ 0 mls/hr IV .Q0M PRN PRN Reason: Hypoglycemia Insulin Human Lispro (Humalog) 0 units SC .MILD SLIDING SCALE PRN PRN Reason: Mild Correctional Scale Last Admin: 01/17/19 16:59 Dose: 3 unit Insulin Human Lispro (Humalog) 0 units SC .BEDTIME SLIDING SC PRN PRN Reason: Bedtime Correctional Scale Isosorbide Mononitrate (Imdur) 60 mg PO DAILY [facility] Last Admin: 01/18/19 08:38 Dose: 60 mg Nifedipine (Procardia Xl) 60 mg PO DAILY [facility] Last Admin: 01/18/19 08:38 Dose: 60 mg Ondansetron HCl (Zofran Odt) 4 mg PO Q6H PRN PRN Reason: Nausea/Vomiting Ondansetron HCl (Zofran) 4 mg IVP Q6H PRN PRN Reason: Nausea/Vomiting Senna/Docusate Sodium (Senokot S) 2 tab PO BID PRN PRN Reason: Constipation Sodium Chloride (Flush - Normal Saline) 10 ml IVF Q12HR [facility] Last Admin: 01/18/19 08:38 Dose: 10 ml Sodium Chloride (Flush - Normal Saline) 10 ml IVF PRN PRN PRN Reason: Saline Flush
--- NOTE | 2019-01-18 19:15 | PDOC.CTH ---
Cardiology Progress Note - Subjective He feels better. His pacer site is without issues. - Objective Vital Signs Temp Pulse Resp BP BP Pulse Ox 01/18/19 15:36 97.8 F 61 18 111/55 L 95 01/18/19 13:30 98.3 F 61 18 134/63 95 01/18/19 08:33 98.0 F 60 18 123/61 98 01/18/19 08:00 98 Weight 179 lb 8 oz 01/17/19 01/18/19 01/19/19 06:59 06:59 06:59 Intake Total 480 1240 480 Output Total 50 100 2250 Balance 430 1140 -1770 - Physical Examination General/Neuro: alert & oriented x3, NAD Neck: no JVD present Lungs: CTA, unlabored respirations Heart: RRR Abdomen: NT/ND Extremities: other: (no edema) - Telemetry Telemetry Rhythm: NSR - Labs Result Diagrams: 01/18/19 05:23 01/18/19 05:23 Troponin/CKMB CK-MB (CK-2) 2.2 ng/mL (0-6.6) 01/15/19 13:48 Troponin I 0.203 ng/mL (< 0.028) H 01/15/19 13:48 - Assessment/Plan 1. Tachy jaimee syndrome 2. S/P PPM placement. 3. Ascitis 4. Cirrhosis 5. ESRD PLAN: - Echo shows normal LV function. Diastolic function seems normal on current echo. Even if he had some level of diastolic dysfunction this would not cause cardiac cirrhosis. It does not seem that his liver is failing with a normal Bilirrubin and normal albumin. His right sided pressures are not high and would go against this being pulmonary HTN. - Only way to get cardiac cirrhosis is if he has had several bouts of congestive heart failure. - Would recommend work up of cirrhosis to include Hep panel, Alpha-1 antitrypsin deficiency, hemochromatosis, PBC and PSC, medication induced. - BP is normal and would treat as if he had portal hypertension. Will defer to primary team for this. - Allopurinol and Acetaminophen should be stopped.
[2019-01-18] MEDS ORDERED: Clopidogrel Bisulfate 75 MG TAB ONE (20:17)
[2019-01-18] MEDS: Atorvastatin Calcium 10 MG TAB PO SCH (21:12)
[2019-01-18] MEDS: Famotidine 20 MG TAB PO SCH (21:12)
[2019-01-18] MEDS: Insulin Glargine 14 UNITS in Pre-Filled Syringe 1 EACH SC SCH (21:13)
[2019-01-19 06:44] LABS: #Basophils 0.1 thou/uL (0.0-0.2); #Eosinphils 0.4 thou/uL (0.0-0.7); #Lymphocytes 0.4 thou/uL (1.20-3.40); #Monocytes 0.3 thou/uL (0.11-0.59); %Eosinophils 7.5 % (0.0-10.0); %Monocytes 6.3 % (0.0-10.0); %Neutrophils 77.2 % (42.0-75.0); Hemoglobin 10.9 g/dL (14.0-18.0); Mean Corpuscular HGB CONC 31.4 g/dL (32.0-36.0); Mean Corpuscular Hemoglobin 29.3 pg (27.0-31.0); Mean Corpuscular Volume 93.2 fL (78.0-98.0); Platelet Count 157 thou/uL (130-400); RBC Distribution Width 17.7 % (11.5-14.5); Red Blood Cell (RBC) Count 3.73 mill/uL (4.70-6.10); White Blood Cell (WBC) Count 5.2 thou/uL (4.8-10.8)
[2019-01-19 07:44] LABS: Ferritin 1458.86 ng/mL (22-322)
[2019-01-19 07:58] LABS: HBSAg Index 0.21 S/CO (0-0.99); Hep A IgM AB Non-Reactive (NonReactive); Hep A IgM S/CO 0.11 S/CO (0-0.79); Hep B Surf Ag Non-Reactive S/CO (NonReactive); Hep C IgG Ab Non-Reactive (NonReactive); Hep C Index 0.06 S/CO (0-0.79); Hepatitis B Core IgM Abs Non-Reactive (NonReactive)
[2019-01-19 08:29] VITALS: BP 146/66; TEMP 98
[2019-01-19] MEDS: Amiodarone 200 MG TAB PO SCH (08:31)
[2019-01-19] MEDS: Allopurinol 300 MG TAB PO SCH (08:31)
[2019-01-19] MEDS: Doxazosin Mesylate 4 MG TAB PO SCH (08:32)
[2019-01-19] MEDS: Docusate 100 MG CAP PO SCH (08:32)
[2019-01-19] MEDS: NIFEdipine XL 60 MG TAB PO SCH (08:32)
[2019-01-19] MEDS: Aspirin 81 mg Enteric Coated Tablet PO SCH (08:32)
[2019-01-19] MEDS: HYDROcodone/Acetaminophen 5/325 mg Tablet PO PRN (08:55)
--- NOTE | 2019-01-19 10:05 | PDOC.PN ---
- Subjective Encounter Start Date: 01/19/19 Encounter Start Time: 08:45 Subjective: feels good, no sob -: no abd pain or nausea -: eating well - Objective Resuscitation Status - Order Detail: 01/15/19 19:54 Resuscitation Status Routine Resuscitation Status: FULL: Full Resuscitation Discussed with: Patient POPPY Reviewed: Yes Vital Signs & Weight: Vital Signs (12 hours) Temp Pulse Resp BP BP BP Pulse Ox 01/19/19 08:32 60 146/66 H 01/19/19 08:25 98.0 F 60 16 146/66 H 98 01/19/19 04:00 98.2 F 60 20 124/58 L 97 01/18/19 23:48 97.8 F 60 18 124/60 95 Weight Weight 179 lb 8 oz I&O: 01/18/19 01/19/19 01/20/19 06:59 06:59 06:59 Intake Total 1240 720 Output Total 100 2250 Balance 1140 -1530 Result Diagrams: 01/19/19 06:26 01/18/19 05:23 Additional Labs: Accuchecks 01/19/19 01/19/19 01/18/19 06:25 05:22 20:46 POC Glucose 115 H 69 L 276 H 01/18/19 17:09 POC Glucose 161 H Phys Exam - Physical Examination HEENT: PERRLA, moist MMs Neck: no JVD, supple Respiratory: no wheezing, no rales Cardiovascular: RRR, no significant murmur Gastrointestinal: soft, non-tender, positive bowel sounds ascites++ Musculoskeletal: no edema, pulses present Neurological: non-focal, moves all 4 limbs Psychiatric: normal affect, A&O x 3 Dx/Plan (1) Tachy-jaimee syndrome Code(s): 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 - SICK SINUS SYNDROME Status: Acute Comment: s/p dual chamber medtronic [place] XT mri compatible pcm (2) ESRD (end stage renal disease) on dialysis Code(s): N18.6 - END STAGE RENAL DISEASE; Z99.2 - DEPENDENCE ON RENAL DIALYSIS Status: Chronic (3) Afib Code(s): I48.91 - UNSPECIFIED ATRIAL FIBRILLATION Status: Acute Qualifiers: Atrial fibrillation type: paroxysmal Qualified Code(s): I48.0 - Paroxysmal atrial fibrillation (4) CAD (coronary artery disease) Code(s): I25.10 - ATHSCL HEART DISEASE OF [place] CORONARY ARTERY W/O ANG PCTRS Status: Chronic Qualifiers: Coronary Disease-Associated Artery/Lesion type: bypass graft [place] vs. transplanted heart: [place] heart Associated angina: without angina Qualified Code(s): I25.810 - Atherosclerosis of coronary artery bypass graft(s) without angina pectoris (5) Demand ischemia of myocardium Code(s): I24.8 - OTHER FORMS OF ACUTE ISCHEMIC HEART DISEASE Status: Acute (6) Cirrhosis of liver with ascites Code(s): K74.60 - UNSPECIFIED CIRRHOSIS OF LIVER; R18.8 - OTHER ASCITES Status : Chronic Qualifiers: Hepatic cirrhosis type: unspecified hepatic cirrhosis Qualified Code(s): K74.60 - Unspecified cirrhosis of liver; R18.8 - Other ascites Comment: s/p paracentesis with removal of 4 liters 01/17/2019 (7) Diastolic congestive heart failure Code(s): I50.30 - UNSPECIFIED DIASTOLIC (CONGESTIVE) HEART FAILURE Status: Ruled-out (8) Gout Code(s): M10.9 - GOUT, UNSPECIFIED Status: Chronic Qualifiers: Gout site: unspecified site Gout etiology: unspecified cause (9) Hyperlipidemia Code(s): E78.5 - HYPERLIPIDEMIA, UNSPECIFIED Status: Chronic Qualifiers: Hyperlipidemia type: mixed hyperlipidemia Qualified Code(s): E78.2 - Mixed hyperlipidemia (10) Hypertension Code(s): I10 - ESSENTIAL (PRIMARY) HYPERTENSION Status: Chronic Qualifiers: Hypertension type: essential hypertension Qualified Code(s): I10 - Essential (primary) hypertension - Plan dc pt home -: further outpt eval for etiology of ascites by GI/cardio/PCP -: is on procardia, amiodarone taper, imdur -: motrin prn for post pcm pain -: echo showed normal ef and diastolic function * .
--- NOTE | 2019-01-19 10:32 | PRG ---
DATE OF SERVICE: 01/19/2019 SUBJECTIVE: Mr. Hernandez is a 73-year-old white male with ESRD and followed by [facility] for his maintenance hemodialysis. He was admitted due to his abdominal fullness and was found to have ascites and ?of cirrhosis. He received a diagnostic and therapeutic paracentesis-4 L was removed. The patient also had a pacemaker placed recently. No complaints of chest pain or shortness of breath. OBJECTIVE: VITAL SIGNS: Blood pressure is 146/66, heart rate is 60, respiratory rate is 16, temperature is 98, and pulse ox is 98%. GENERAL: Noted to be awake, alert, sitting comfortable. SKIN: Adequate turgor. HEENT: Pinkish conjunctivae. Anicteric sclerae. NECK: No neck mass. No carotid bruits. No JVD. CHEST: No deformities. LUNGS: Clear breath sounds. HEART: Normal sinus rhythm. No murmurs, no gallops, no rubs. ABDOMEN: Globular, soft, nontender. No masses. EXTREMITIES: There is no edema. No deformities. MEDICATIONS: Medications of January 19, 2019, reviewed. LABORATORY DATA: January 19, 2019; white count 5.2, hemoglobin 10.9. January 18, 2019, sodium 136, potassium 4.4, chloride 98, carbon dioxide 29, BUN 46, creatinine 6.69. ASSESSMENT AND PLAN: 1. End-stage renal disease, stable, tolerating current hemodialysis regimen. Continue current dialysis regimen of Sunday, , and Sunday. 2. We will restart the patient's phosphate binders-Renvela 800 mg one tablet t.i.d. with meals. 3. Ascites/?cirrhosis-currently being worked up. GI following. As per comments by Cardiology, his feeling pressures are said not to be [id number]-[id number] pressures were said to be within range making pulmonary hypertension less likely and right heart failure also less likely. Further recommendations to work him up for underlying intrinsic liver problem is being considered. 4. Please note his hepatitis B and C serologies are all negative. 5. Overall agree with current management. No indication for an emergent hemodialysis today. Job ID: [id number]
--- NOTE | 2019-01-19 11:34 | DIS ---
DATE OF ADMISSION: 01/15/2019 DATE OF DISCHARGE: 01/19/2019 DISCHARGE DISPOSITION: Home. PRIMARY DISCHARGE DIAGNOSES: Tachy-jaimee syndrome, status post pacemaker; new onset ascites, status post paracentesis. SECONDARY DISCHARGE DIAGNOSES: Demand ischemia; coronary artery disease; paroxysmal atrial fibrillation; end-stage renal disease, on hemodialysis; suspected cirrhosis; dyslipidemia; gout; and hypertension. PROCEDURES DONE DURING HOSPITALIZATION: Echo with 2D Doppler showed EF of 55% to 60% with normal diastolic dysfunction. There is moderately dilated left atrium and right atrium. RV systolic pressures were estimated at 31 mmHg. Small pericardial effusion without tamponade was seen. The patient had paracentesis done on 01/17/2019 by Interventional Radiology with removal of 4 L of clear yellow ascitic fluid. He had placement of dual-chamber pacemaker on 01/16/[address] Johnson. Abdomen and pelvis CAT scan done on the day of admission showed moderate amount of ascites. There are signs of portal vein hypertension including moderate splenomegaly and a cirrhotic appearance of the liver. H and H 11 and 34, platelet count 157, MCV is 93. INR 1.2. Ferritin was 1458, BUN 44, creatinine 6.6. Troponin I was indeterminate at 0.20, CK-MB 2.2, albumin 4.5. Ascites fluid showed 140 wbc's, 35 rbc's with 5% neutrophils. Total protein was 4.7 on the ascitic fluid. Hepatitis panel including A, B, and C were nonreactive. DISCHARGE MEDICATIONS: The patient to continue, 1. Atorvastatin 20 mg p.o. daily. 2. Doxazosin 8 mg p.o. at bedtime. 3. Lantus 10 units subcu daily. 4. Imdur 60 mg p.o. q.a.m. 5. Procardia XL 60 mg p.o. daily. 6. CoQ10 of 100 mg p.o. daily. 7. Allopurinol 100 mg p.o. daily. 8. Amiodarone tapering dose. 9. Aspirin 81 mg p.o. daily. 10. Motrin p.r.n. for pain for a period of 5 days post pacemaker insertion site pain. ALLERGIES: NO KNOWN DRUG ALLERGIES. HE IS ALLERGIC TO EGG. INPATIENT CONSULT: Dr. Chavarria for Nephrology; Dr. Johnson/Sil for Cardiology; Dr. Darrel Mason for Gastroenterology. BRIEF COURSE DURING HOSPITALIZATION: The patient initially got admitted on the with complaints of increasing abdominal girth. He was found to have had new onset ascites and findings of cirrhotic morphology on the CAT scan with signs of portal hypertension as well. The patient also had tachy-jaimee syndrome. He had consultation with Dr. Mujica and Dr. Johnson. He has had dual-chamber pacemaker placed for the same. Paracentesis was done with removal of 4 L. The patient's ascites is likely due to cirrhosis with unclear etiology. His hepatitis panel is negative. Echo showed normal ejection fraction and diastolic dysfunction. He has been advised to follow up with Dr. Mason in two weeks, Dr. Mujica in 2 weeks, and primary care physician in one week. He is hemodynamically stable, ambulating well and is wanting to go home today. Please see a [id number] documentation for the day of discharge on [place]. Job ID: [id number]
[2019-01-19] MEDS ORDERED: Sevelamer Carbonate 800 MG TAB PO SCH (12:00)
[2019-01-20 15:17] LABS: Alpha-1-Antitrypsin 176 mg/dL (90-200)
[2019-01-22 05:17] LABS: Hep B Surface AG-Rflx Sendout Negative (Negative); Hepatitis B Core IgM AB Negative (Negative); Hepatitis B Core Total Negative (Negative); Hepatitis B Surface AB-Sendout Non Reactive (.)
== END 2019-01-19 11:23 | disposition home or self-care (01) | DRG 242 ==
LOC: ERS 13:26 → 2NO 16:50
PROVIDERS: ADMIT Internal Medicine; ATTEND Internal Medicine
PROC: 0W9G3ZZ Drainage of Peritoneal Cavity, Percutaneous Approach (ICD-10-PCS; principal; 2019-01-15)
PROC: 0JH606Z Insertion of Pacemaker, Dual Chamber into Chest Subcutaneous Tissue and Fascia, Open Approach (ICD-10-PCS; 2019-01-15)
PROC: 02H63JZ Insertion of Pacemaker Lead into Right Atrium, Percutaneous Approach (ICD-10-PCS; 2019-01-15)
PROC: 02HK3JZ Insertion of Pacemaker Lead into Right Ventricle, Percutaneous Approach (ICD-10-PCS; 2019-01-15)
DX: I48.91 Unspecified atrial fibrillation (principal); N18.6 End stage renal disease; I50.33 Acute on chronic diastolic (congestive) heart failure; R18.8 Other ascites; I13.2 Hypertensive heart and chronic kidney disease with heart failure and with stage 5 chronic kidney disease, or end stage renal disease; I24.8 Other forms of acute ischemic heart disease; K74.60 Unspecified cirrhosis of liver; E11.22 Type 2 diabetes mellitus with diabetic chronic kidney disease; Z99.2 Dependence on renal dialysis; E78.5 Hyperlipidemia, unspecified; M10.9 Gout, unspecified; N40.0 Benign prostatic hyperplasia without lower urinary tract symptoms; Z95.1 Presence of aortocoronary bypass graft; I49.5 Sick sinus syndrome; I25.10 Atherosclerotic heart disease of native coronary artery without angina pectoris
CPT/HCPCS: 33208; 36005; 36415; 36416; 49083; 71045; 74177; 75820; 80048; 80053; 80074; 82103; 82553; 82728; 83605; 84157; 84484; 85025; 85060; 85610; 86704; 86705; 86706; 86707; 87070; 87205; 87340; 87350; 89051; 90935; 93005; 93010; 93306; C1785; C1898; G0257; J0690; J1580; J1825; J2001; Q9966

== ENCOUNTER 2019-04-02 12:29 | Day surgery (SDC) | payer MEDICARE ==
[2019-04-02 12:48] LABS: #Eosinphils 0.1 thou/uL (0.0-0.7); #Lymphocytes 0.5 thou/uL (1.20-3.40); #Monocytes 0.4 thou/uL (0.11-0.59); %Basophils 0.5 % (0.0-1.0); %Lymphocytes 7.6 % (21.0-51.0); %Monocytes 7.2 % (0.0-10.0); %Neutrophils 82.7 % (42.0-75.0); Hemoglobin 11.6 g/dL (14.0-18.0); Mean Corpuscular HGB CONC 33.3 g/dL (32.0-36.0); Mean Corpuscular Hemoglobin 30.7 pg (27.0-31.0); Mean Platelet Volume 7.4 fL (7.4-10.4); Platelet Count 200 thou/uL (130-400); RBC Distribution Width 17.9 % (11.5-14.5); Red Blood Cell (RBC) Count 3.77 mill/uL (4.70-6.10); White Blood Cell (WBC) Count 6.1 thou/uL (4.8-10.8)
[2019-04-02 12:54] LABS: INR-International Normal Ratio 1.2; Prothrombin Time 14.8 SEC (12.0-14.7)
[2019-04-02 12:55] LABS: PTT 36.8 SEC (22.9-36.1)
[2019-04-02] MEDS ORDERED: Sodium Bicarbonate 2.5 MEQ/5 ML VIAL ONE (13:01)
[2019-04-02 14:37] VITALS: BP 160/75; TEMP 97.6
[2019-04-02 14:47] VITALS: BMI 23.6
--- NOTE | 2019-04-02 15:21 | ULT ---
Exam: Ultrasound guided paracentesis HISTORY: Ascites COMPARISON: 01/17/2019 FINDINGS: Successful ultrasound-guided paracentesis. Total of yellow, 5 L ascites was aspirated. TECHNIQUE: Consent obtained reformatory ultrasound-guided paracentesis. Right lower quadrant was deem ed appropriate. Skin was prepped and draped in a sterile fashion. 1% lidocaine, buffered with sodium bicarbonate was used for local anesthesia. Under ultrasound guidance, a 5 [place] 7 cm Yueh cat heter is advanced in the peritoneal space. A total of dark yellow, 5 L ascites was aspirated. No immediate or postprocedural complications IMPRESSION: Successful ultrasound-guided paracentesis.
== END 2019-04-02 14:30 | disposition home or self-care (01) ==
LOC: ULT 12:29
PROVIDERS: ATTEND Internal Medicine Nephrology
DX: R18.8 Other ascites (principal); I13.2 Hypertensive heart and chronic kidney disease with heart failure and with stage 5 chronic kidney disease, or end stage renal disease; E11.22 Type 2 diabetes mellitus with diabetic chronic kidney disease; N18.6 End stage renal disease; I50.9 Heart failure, unspecified; E78.5 Hyperlipidemia, unspecified; E78.00 Pure hypercholesterolemia, unspecified; Z99.2 Dependence on renal dialysis; Z95.1 Presence of aortocoronary bypass graft
CPT/HCPCS: 36415; 49083; 85025; 85610; 85730

== ENCOUNTER → 2020-05-25 | Day surgery (SDC) | payer MEDICARE ==
[~2020-05-25] MED LIST changes: -ISOVUE-370 76%-LOCM 1 ML ONE; +Lidocaine 1% PF 5 ML VIAL ONE; +Sodium Bicarbonate 2.5 MEQ/5 ML VIAL ONE
[2020-05-25 11:38] LABS: #Eosinphils 0.1 thou/uL (0.0-0.7); #Lymphocytes 0.5 thou/uL (1.20-3.40); #Monocytes 0.3 thou/uL (0.11-0.59); #Neutrophils 3.9 thou/uL (1.40-6.50); %Basophils 0.5 % (0.0-1.0); %Lymphocytes 11.2 % (21.0-51.0); %Monocytes 6.1 % (0.0-10.0); %Neutrophils 80.3 % (42.0-75.0); Hemoglobin 10.8 g/dL (14.0-18.0); Mean Corpuscular HGB CONC 33.2 g/dL (32.0-36.0); Mean Corpuscular Hemoglobin 31.8 pg (27.0-31.0); Mean Corpuscular Volume 95.7 fL (78.0-98.0); Mean Platelet Volume 8.3 fL (7.4-10.4); Platelet Count 138 thou/uL (130-400); RBC Distribution Width 16.9 % (11.5-14.5); Red Blood Cell (RBC) Count 3.39 mill/uL (4.70-6.10); White Blood Cell (WBC) Count 4.8 thou/uL (4.8-10.8)
[2020-05-25 11:46] LABS: INR-International Normal Ratio 1.1; PTT 33.6 sec (22.9-36.1)
--- NOTE | 2020-05-25 13:49 | ULT ---
Ultrasound-guided paracentesis: HISTORY: End-stage renal disease. Recurrent ascites. FINDINGS: Informed consent obtained prior to the procedure. Preprocedural imaging demonstrated intrap eritoneal free fluid. An area was marked in the right mid abdomen in the mid axillary line, and then meticulously prepped a nd draped in normal sterile fashion and anesthetized with 1% buffered lidocaine. With direct sonographic guidance, a 19-gauge needle and 5 [place] Yueh catheter were advanced into the abdomen. After the return of fluid, the catheter was advanced, and the needle was removed. Approximately 1.7 L of clear straw-colored fluid was aspirated. The introducer sheath was removed, a nd hemostasis was achieved with direct pressure. A dry sterile dressing was placed. The patient tolerated the procedure well and without immediate complication. IMPRESSION: Technically successful ultrasound-guided paracentesis.
[2020-05-25 14:14] VITALS: BP 135/72; TEMP 98.4; BMI 23.6
== END ==
LOC: ULT 11:17
PROVIDERS: ATTEND Internal Medicine Nephrology
PROC: 0W9G3ZZ Drainage of Peritoneal Cavity, Percutaneous Approach (ICD-10-PCS; principal; 2020-05-25)
DX: R18.8 Other ascites (principal); I13.2 Hypertensive heart and chronic kidney disease with heart failure and with stage 5 chronic kidney disease, or end stage renal disease; E11.22 Type 2 diabetes mellitus with diabetic chronic kidney disease; N18.6 End stage renal disease; I50.9 Heart failure, unspecified; Z87.891 Personal history of nicotine dependence; Z79.4 Long term (current) use of insulin; Z79.82 Long term (current) use of aspirin; Z79.899 Other long term (current) drug therapy; Z91.012 Allergy to eggs; Z88.7 Allergy status to serum and vaccine; Z95.0 Presence of cardiac pacemaker; Z95.1 Presence of aortocoronary bypass graft; Z99.2 Dependence on renal dialysis
CPT/HCPCS: 49083; 85025; 85610; 85730; J2001

== ENCOUNTER 2020-10-19 08:27 | Day surgery (SDC) | payer MEDICARE ==
[2020-10-18 08:26] VITALS: BMI 23.6
[2020-10-19] MEDS ORDERED: Sodium Bicarbonate 2.5 MEQ/5 ML VIAL ONE (09:40)
[2020-10-19] MEDS ORDERED: Lidocaine 1% PF 5 ML VIAL ONE (09:40)
[2020-10-19 10:32] VITALS: BP 120/60; TEMP 98.1
--- NOTE | 2020-10-19 12:06 | ULT ---
Sonographic guided paracentesis HISTORY: Symptomatic ascites. FINDINGS: After explaining the procedure and answering all questions, sonographic survey showed small -to-moderate amount of free fluid throughout the abdomen. Options were discussed with the patient. Patient requested drainage to see if symptoms would be relieved. Sterile technique, buffered local anesthesia, sonographic guidance, and a lower) midline approach wer e used to carefully advance the tip of a 19-gauge Yueh needle and catheter into the free fluid. Catheter was left to drain a total volume of 1.65 L clear yellow liquid. Catheter was removed with minimal fluid remaining. Patient tolerated the procedure well and was dismi ssed in good condition. IMPRESSION : Technically successful sonographic guided paracentesis. 1.65 L
== END 2020-10-19 10:15 | disposition home or self-care (01) ==
LOC: ULT 08:27
PROVIDERS: ATTEND Internal Medicine Nephrology
PROC: 0W9G3ZZ Drainage of Peritoneal Cavity, Percutaneous Approach (ICD-10-PCS; principal; 2020-10-19)
DX: I13.2 Hypertensive heart and chronic kidney disease with heart failure and with stage 5 chronic kidney disease, or end stage renal disease (principal); E11.22 Type 2 diabetes mellitus with diabetic chronic kidney disease; N18.6 End stage renal disease; I50.9 Heart failure, unspecified; K74.60 Unspecified cirrhosis of liver; R18.8 Other ascites; I25.10 Atherosclerotic heart disease of native coronary artery without angina pectoris; E78.5 Hyperlipidemia, unspecified; M10.9 Gout, unspecified; Z87.891 Personal history of nicotine dependence; Z79.4 Long term (current) use of insulin; Z79.82 Long term (current) use of aspirin; Z79.899 Other long term (current) drug therapy; Z88.7 Allergy status to serum and vaccine; Z91.012 Allergy to eggs; Z95.1 Presence of aortocoronary bypass graft; Z99.2 Dependence on renal dialysis
CPT/HCPCS: 49083

== ENCOUNTER 2021-02-14 17:03 | Emergency (ER) | payer MEDICARE ==
[2021-02-14 18:12] LABS: Hemoglobin 10.5 g/dL (14.0-18.0); Mean Corpuscular HGB CONC 33.4 g/dL (32.0-36.0); Mean Corpuscular Hemoglobin 32.1 pg (27.0-31.0); Mean Platelet Volume 9.3 fL (7.4-10.4); Platelet Count 130 thou/uL (130-400); RBC Distribution Width 16.9 % (11.5-14.5); Red Blood Cell (RBC) Count 3.28 mill/uL (4.70-6.10); White Blood Cell (WBC) Count 15.1 thou/uL (4.8-10.8)
[2021-02-14 18:28] LABS: ALT (SGPT) 7 U/L (8-55); AST (SGOT) 29 U/L (5-34); Albumin 3.4 g/dL (3.4-4.8); Alkaline Phosphatase 185 U/L (40-110); Anion Gap 21 mmol/L (10-20); BUN (Urea Nitrogen) 50 mg/dL (8.4-25.7); Bilirubin, Total 0.8 mg/dL (0.2-1.2); Calc. Creatinine Clearance 0 mL/min (70-130); Calcium 9.5 mg/dL (7.8-10.44); Carbon Dioxide 23 mmol/L (23-31); Chloride 94 mmol/L (98-107); Globulin 4.5 g/dL (2.4-3.5); Glucose 304 mg/dL (83-110); Protein, Total 7.9 g/dL (5.8-8.1); Sodium 133 mmol/L (136-145)
[2021-02-14 18:49] LABS: Anisocytosis MODERATE=16-30 cells (100X) (0-5/hpf); Band 20 % (5-11); Lymphocytes 3 % (21-51); MDiff Complete? YES; Monocytes 6 % (0-10); Neutrophil 71 % (42-75); Platelet Morphology Comment Appears Adequate
[2021-02-14] MEDS ORDERED: Cefepime 2 GM VIAL ONE (20:23)
[2021-02-14 20:36] LABS: CK (CPK) 490 U/L (30-200); Lipase 18 U/L (8-78)
[2021-02-14] MEDS ORDERED: Vancomycin 1 GM/200 ML BAG ONE (21:01)
== END 2021-02-14 23:30 | disposition short-term general hospital (02) ==
LOC: ERS 17:03
DX: A41.9 Sepsis, unspecified organism (principal); L03.115 Cellulitis of right lower limb; E11.22 Type 2 diabetes mellitus with diabetic chronic kidney disease; I12.0 Hypertensive chronic kidney disease with stage 5 chronic kidney disease or end stage renal disease; N18.6 End stage renal disease; M10.9 Gout, unspecified; Z99.2 Dependence on renal dialysis; Z79.82 Long term (current) use of aspirin; Z79.899 Other long term (current) drug therapy
CPT/HCPCS: 36415; 71045; 80053; 82550; 83605; 83690; 83880; 85025; 87040; 93005; 96365; 96367; J0692; J3370

== ENCOUNTER 2021-02-17 17:30 | Emergency (ER) | payer MEDICARE ==
[~2021-02-17 17:30] MED LIST changes: +Iopamidol-370 76% 500 ML 1 ML ONE; -Lidocaine 1% PF 5 ML VIAL ONE; -Sodium Bicarbonate 2.5 MEQ/5 ML VIAL ONE
[2021-02-17 20:31] LABS: #Eosinphils 0.1 thou/uL (0.0-0.7); #Lymphocytes 0.4 thou/uL (1.20-3.40); #Monocytes 0.8 thou/uL (0.11-0.59); #Neutrophils 13.7 thou/uL (1.40-6.50); %Basophils 0.1 % (0.0-1.0); %Eosinophils 0.3 % (0.0-10.0); %Monocytes 5.2 % (0.0-10.0); %Neutrophils 91.4 % (42.0-75.0); Hemoglobin 9.6 g/dL (14.0-18.0); Mean Corpuscular HGB CONC 32.4 g/dL (32.0-36.0); Mean Corpuscular Hemoglobin 31.2 pg (27.0-31.0); Mean Corpuscular Volume 96.2 fL (78.0-98.0); Mean Platelet Volume 8.2 fL (7.4-10.4); Platelet Count 174 thou/uL (130-400); RBC Distribution Width 16.4 % (11.5-14.5); Red Blood Cell (RBC) Count 3.06 mill/uL (4.70-6.10); White Blood Cell (WBC) Count 14.9 thou/uL (4.8-10.8)
[2021-02-17 20:51] LABS: ALT (SGPT) 9 U/L (8-55); AST (SGOT) 49 U/L (5-34); Albumin 3.1 g/dL (3.4-4.8); Alkaline Phosphatase 223 U/L (40-110); Anion Gap 14 mmol/L (10-20); BUN (Urea Nitrogen) 29 mg/dL (8.4-25.7); Bilirubin, Total 0.7 mg/dL (0.2-1.2); Calc. Creatinine Clearance 0 mL/min (70-130); Calcium 9.2 mg/dL (7.8-10.44); Carbon Dioxide 29 mmol/L (23-31); Chloride 96 mmol/L (98-107); Globulin 4.2 g/dL (2.4-3.5); Glucose 220 mg/dL (83-110); Potassium 4.2 mmol/L (3.5-5.1); Protein, Total 7.3 g/dL (5.8-8.1); Sodium 135 mmol/L (136-145)
[2021-02-17] MEDS ORDERED: Morphine 2 MG/ML VIAL ONE (22:16)
[2021-02-17] MEDS ORDERED: Ondansetron PF 4 MG/2 ML Vial ONE (22:16)
== END 2021-02-17 22:28 | disposition home or self-care (01) ==
LOC: ERS 17:30
DX: E11.51 Type 2 diabetes mellitus with diabetic peripheral angiopathy without gangrene (principal); I10 Essential (primary) hypertension; Z79.899 Other long term (current) drug therapy; Z79.4 Long term (current) use of insulin; Z79.82 Long term (current) use of aspirin
CPT/HCPCS: 75635; 80053; 83605; 85025; 96374; 96375; 99284; J2270; 36415; J2405; Q9967

== ENCOUNTER 2021-02-19 11:14 | Emergency (ER) | payer MEDICARE | END 2021-02-19 12:50 | disposition home or self-care (01) | LOC: ERS 11:14 | DX: I73.9 Peripheral vascular disease, unspecified (principal); E11.9 Type 2 diabetes mellitus without complications; M10.9 Gout, unspecified; Z79.82 Long term (current) use of aspirin; Z79.4 Long term (current) use of insulin; Z79.899 Other long term (current) drug therapy | CPT/HCPCS: 99283 ==

== ENCOUNTER 2021-02-21 15:56 | Outpatient (CLI) | payer MEDICARE ==
[2021-02-22 04:04] LABS: SARS-CoV-2 PCR by NAA Not Detected (NotDetected)
== END 2021-02-21 15:57 | disposition home or self-care (01) ==
LOC: LABBT 15:56
PROVIDERS: ATTEND Thoracic Surgery (Cardiothoracic Vascular Surgery)
DX: Z01.812 Encounter for preprocedural laboratory examination (principal); Z20.822 Contact with and (suspected) exposure to COVID-19
CPT/HCPCS: U0003; U0005; 87635

== ENCOUNTER 2021-02-21 17:00 | Inpatient (IN) | payer MEDICARE ==
[2021-02-24] MEDS ORDERED: Fentanyl 100 MCG/2 ML VIAL ONE (11:36)
[2021-02-24] MEDS ORDERED: Lidocaine 1% PF 5 ML VIAL ONE (12:00)
[2021-02-24] MEDS ORDERED: PHENYLEPHRINE-NS 100 MCG/ML 10 ML SYRINGE ONE (12:00)
[2021-02-24] MEDS ORDERED: Ondansetron PF 4 MG/2 ML Vial ONE (12:00)
[2021-02-24] MEDS ORDERED: diphenhydrAMINE 50 MG/ML VIAL ONE (12:00)
[2021-02-24] MEDS ORDERED: Rocuronium Bromide 10 MG/ML (10ML VIAL) ONE (12:00)
[2021-02-24] MEDS ORDERED: SUGAMMADEX SODIUM 500 MG/5 ML VIAL ONE (12:02)
[2021-02-24] MEDS ORDERED: Promethazine HCl 25 MG/ML VIAL IM PRN (13:16)
[2021-02-24] MEDS ORDERED: Promethazine HCl 25 MG/ML VIAL SLOW IVP PRN (13:16)
[2021-02-24] MEDS ORDERED: Ondansetron HCl/PF 4 MG/2 ML Vial IVP PRN (13:16)
[2021-02-24] MEDS ORDERED: Fentanyl 100 MCG/2 ML VIAL SLOW IVP PRN (15:54)
[2021-02-24] MEDS: Sodium Chloride 0.9% 1,000 ML IV SCH (16:15)
[2021-02-24] MEDS ORDERED: Dextrose 50% Abboject 50 ML SYRINGE IVP PRN (16:45)
[2021-02-24] MEDS ORDERED: Dextrose 5% in Water 1,000 ML IV PRN (16:45)
[2021-02-24] MEDS: Calcium Acetate 667 MG CAP PO SCH (18:16)
[2021-02-24 19:22] VITALS: BMI 22.9
[2021-02-24] MEDS: HYDROcodone/Acetaminophen 5/325 mg Tablet PO PRN (21:14)
[2021-02-24] MEDS: Lantus 1000 UNITS/10 ML VIAL SC SCH (21:28)
[2021-02-24] MEDS: traMADol HCl 50 MG TAB PO PRN (22:53)
[2021-02-25] MEDS: HYDROcodone/Acetaminophen 5/325 mg Tablet PO PRN ×4 (02:39→20:32)
[2021-02-25 05:21] LABS: #Basophils 0.1 thou/uL (0.0-0.2); #Eosinphils 0.1 thou/uL (0.0-0.7); #Lymphocytes 0.6 thou/uL (1.20-3.40); #Monocytes 0.7 thou/uL (0.11-0.59); #Neutrophils 10.6 thou/uL (1.40-6.50); %Basophils 0.4 % (0.0-1.0); %Monocytes 5.7 % (0.0-10.0); %Neutrophils 87.9 % (42.0-75.0); Hemoglobin 9.1 g/dL (14.0-18.0); Mean Corpuscular HGB CONC 32.6 g/dL (32.0-36.0); Mean Corpuscular Hemoglobin 31.5 pg (27.0-31.0); Mean Corpuscular Volume 96.7 fL (78.0-98.0); Mean Platelet Volume 7.5 fL (7.4-10.4); Platelet Count 232 thou/uL (130-400); RBC Distribution Width 17.8 % (11.5-14.5); Red Blood Cell (RBC) Count 2.88 mill/uL (4.70-6.10); White Blood Cell (WBC) Count 12.1 thou/uL (4.8-10.8)
[2021-02-25 05:40] LABS: Anion Gap 12 mmol/L (10-20); BUN (Urea Nitrogen) 24 mg/dL (8.4-25.7); Calc. Creatinine Clearance 15 mL/min (70-130); Calcium 8.4 mg/dL (7.8-10.44); Carbon Dioxide 30 mmol/L (23-31); Chloride 97 mmol/L (98-107); Glucose 191 mg/dL (83-110); Potassium 3.9 mmol/L (3.5-5.1); Sodium 135 mmol/L (136-145)
[2021-02-25] MEDS: traMADol HCl 50 MG TAB PO PRN (07:29)
[2021-02-25] MEDS: Calcium Acetate 667 MG CAP PO SCH ×3 (09:25→22:01)
[2021-02-25] MEDS: Aspirin 81 mg Enteric Coated Tablet PO SCH (09:25)
[2021-02-25] MEDS: Allopurinol 100 MG TAB PO SCH (09:26)
[2021-02-25] MEDS: Cholecalciferol 1,000 UNITS (25 MCG) TAB PO SCH (09:26)
[2021-02-25] MEDS: Folic Acid/Vit B Comp W-C PO SCH (09:27)
[2021-02-25] MEDS ORDERED: Epoetin (ESRD) 20,000 UNITS/ML SC SCH (12:15)
[2021-02-25] MEDS: EPOETIN ALFA-EPBX (ESRD) 4,000 UNIT/ML VIAL SC SCH (16:52)
[2021-02-25] MEDS: Sodium Chloride 0.9% 1,000 ML IV SCH (20:12)
[2021-02-25] MEDS: Lantus 1000 UNITS/10 ML VIAL SC SCH (20:27)
[2021-02-26] MEDS: HYDROcodone/Acetaminophen 5/325 mg Tablet PO PRN ×3 (02:18→20:01)
[2021-02-26] MEDS: traMADol HCl 50 MG TAB PO PRN ×3 (02:53→21:28)
[2021-02-26] MEDS: Fentanyl 100 MCG/2 ML VIAL SLOW IVP PRN ×3 (03:34→22:02)
[2021-02-26 05:08] LABS: #Basophils 0.1 thou/uL (0.0-0.2); #Eosinphils 0.1 thou/uL (0.0-0.7); #Lymphocytes 0.5 thou/uL (1.20-3.40); #Monocytes 0.7 thou/uL (0.11-0.59); #Neutrophils 10.4 thou/uL (1.40-6.50); %Basophils 0.4 % (0.0-1.0); %Eosinophils 1.1 % (0.0-10.0); %Lymphocytes 4.3 % (21.0-51.0); %Monocytes 5.8 % (0.0-10.0); %Neutrophils 88.4 % (42.0-75.0); Hemoglobin 9.6 g/dL (14.0-18.0); Mean Corpuscular HGB CONC 32.4 g/dL (32.0-36.0); Mean Corpuscular Hemoglobin 31.4 pg (27.0-31.0); Mean Corpuscular Volume 97.1 fL (78.0-98.0); Mean Platelet Volume 7.3 fL (7.4-10.4); Platelet Count 243 thou/uL (130-400); RBC Distribution Width 17.7 % (11.5-14.5); Red Blood Cell (RBC) Count 3.04 mill/uL (4.70-6.10); White Blood Cell (WBC) Count 11.8 thou/uL (4.8-10.8)
[2021-02-26 05:25] LABS: Anion Gap 14 mmol/L (10-20); BUN (Urea Nitrogen) 34 mg/dL (8.4-25.7); Calc. Creatinine Clearance 11 mL/min (70-130); Calcium 8.9 mg/dL (7.8-10.44); Carbon Dioxide 29 mmol/L (23-31); Chloride 96 mmol/L (98-107); Glucose 211 mg/dL (83-110); Potassium 4.2 mmol/L (3.5-5.1); Sodium 135 mmol/L (136-145)
[2021-02-26] MEDS ORDERED: Dextrose 5% in Water 1,000 ML IV PRN (09:44)
[2021-02-26] MEDS ORDERED: Dextrose 50% Abboject 50 ML SYRINGE SLOW IVP PRN (09:44)
[2021-02-26] MEDS: Calcium Acetate 667 MG CAP PO SCH ×3 (14:27→18:07)
[2021-02-26] MEDS: Aspirin 81 mg Enteric Coated Tablet PO SCH (14:28)
[2021-02-26] MEDS: Folic Acid/Vit B Comp W-C PO SCH (14:28)
[2021-02-26] MEDS: Cholecalciferol 1,000 UNITS (25 MCG) TAB PO SCH (14:28)
[2021-02-26] MEDS: Allopurinol 100 MG TAB PO SCH (14:29)
[2021-02-26] MEDS: Sodium Chloride 0.9% 1,000 ML IV SCH (16:00)
[2021-02-26] MEDS: Lantus 1000 UNITS/10 ML VIAL SC SCH (20:08)
[2021-02-27] MEDS: HYDROcodone/Acetaminophen 5/325 mg Tablet PO PRN ×5 (03:45→23:30)
[2021-02-27 04:58] LABS: #Eosinphils 0.2 thou/uL (0.0-0.7); #Lymphocytes 0.7 thou/uL (1.20-3.40); #Monocytes 0.7 thou/uL (0.11-0.59); #Neutrophils 10.2 thou/uL (1.40-6.50); %Basophils 0.3 % (0.0-1.0); %Eosinophils 1.7 % (0.0-10.0); %Lymphocytes 5.8 % (21.0-51.0); %Monocytes 5.6 % (0.0-10.0); %Neutrophils 86.7 % (42.0-75.0); Hemoglobin 9.6 g/dL (14.0-18.0); Mean Corpuscular HGB CONC 32.8 g/dL (32.0-36.0); Mean Corpuscular Hemoglobin 31.7 pg (27.0-31.0); Mean Corpuscular Volume 96.7 fL (78.0-98.0); Mean Platelet Volume 7.2 fL (7.4-10.4); Platelet Count 240 thou/uL (130-400); RBC Distribution Width 17.9 % (11.5-14.5); Red Blood Cell (RBC) Count 3.01 mill/uL (4.70-6.10); White Blood Cell (WBC) Count 11.8 thou/uL (4.8-10.8)
[2021-02-27] MEDS: traMADol HCl 50 MG TAB PO PRN ×3 (05:06→20:56)
[2021-02-27] MEDS: Cholecalciferol 1,000 UNITS (25 MCG) TAB PO SCH (08:44)
[2021-02-27] MEDS: Allopurinol 100 MG TAB PO SCH (08:44)
[2021-02-27] MEDS: Folic Acid/Vit B Comp W-C PO SCH (08:44)
[2021-02-27] MEDS: Aspirin 81 mg Enteric Coated Tablet PO SCH (08:44)
[2021-02-27] MEDS: Calcium Acetate 667 MG CAP PO SCH ×3 (08:44→17:43)
[2021-02-27] MEDS: HumaLOG 300 UNITS/3 ML VIAL SC PRN ×2 (14:07→18:30)
[2021-02-27] MEDS: Sodium Chloride 0.9% 1,000 ML IV SCH (14:49)
[2021-02-27] MEDS: Lantus 1000 UNITS/10 ML VIAL SC SCH (20:55)
[2021-02-28] MEDS: traMADol HCl 50 MG TAB PO PRN ×3 (04:41→23:37)
[2021-02-28] MEDS: HYDROcodone/Acetaminophen 5/325 mg Tablet PO PRN ×3 (08:33→17:50)
[2021-02-28] MEDS: Calcium Acetate 667 MG CAP PO SCH ×3 (08:35→17:58)
[2021-02-28] MEDS: Folic Acid/Vit B Comp W-C PO SCH (08:36)
[2021-02-28] MEDS: Allopurinol 100 MG TAB PO SCH (08:36)
[2021-02-28] MEDS: Aspirin 81 mg Enteric Coated Tablet PO SCH (08:36)
[2021-02-28] MEDS: Cholecalciferol 1,000 UNITS (25 MCG) TAB PO SCH (08:36)
[2021-02-28] MEDS: Sodium Chloride 0.9% 1,000 ML IV SCH (16:17)
[2021-02-28] MEDS: Polyethylene Glycol 3350 17 GM Packet PO PRN (16:25)
[2021-02-28] MEDS: HumaLOG 300 UNITS/3 ML VIAL SC PRN (17:57)
[2021-02-28] MEDS: Docusate 100 MG CAP PO SCH (20:32)
[2021-02-28] MEDS: Lantus 1000 UNITS/10 ML VIAL SC SCH (20:32)
[2021-03-01 05:42] LABS: #Basophils 0.1 thou/uL (0.0-0.2); #Eosinphils 0.1 thou/uL (0.0-0.7); #Lymphocytes 0.6 thou/uL (1.20-3.40); #Monocytes 0.8 thou/uL (0.11-0.59); #Neutrophils 14.7 thou/uL (1.40-6.50); %Basophils 0.6 % (0.0-1.0); %Eosinophils 0.9 % (0.0-10.0); %Lymphocytes 3.8 % (21.0-51.0); %Neutrophils 89.8 % (42.0-75.0); Mean Corpuscular HGB CONC 32.2 g/dL (32.0-36.0); Mean Corpuscular Hemoglobin 31.2 pg (27.0-31.0); Mean Corpuscular Volume 96.8 fL (78.0-98.0); Mean Platelet Volume 7.4 fL (7.4-10.4); Platelet Count 265 thou/uL (130-400); RBC Distribution Width 18.2 % (11.5-14.5); Red Blood Cell (RBC) Count 3.19 mill/uL (4.70-6.10); White Blood Cell (WBC) Count 16.4 thou/uL (4.8-10.8)
[2021-03-01 06:05] LABS: Anion Gap 20 mmol/L (10-20); BUN (Urea Nitrogen) 42 mg/dL (8.4-25.7); Calc. Creatinine Clearance 10 mL/min (70-130); Calcium 10.2 mg/dL (7.8-10.44); Carbon Dioxide 25 mmol/L (23-31); Chloride 94 mmol/L (98-107); Potassium 4.5 mmol/L (3.5-5.1); Sodium 134 mmol/L (136-145)
[2021-03-01 06:08] LABS: Glucose 55 mg/dL (83-110)
[2021-03-01] MEDS: traMADol HCl 50 MG TAB PO PRN (06:33)
[2021-03-01] MEDS: (Lutein [Lutein] 20 MG Capsule) PO SCH ×2 (07:59→08:10)
[2021-03-01] MEDS: Polyethylene Glycol 3350 17 GM Packet PO PRN (09:30)
[2021-03-01] MEDS: Calcium Acetate 667 MG CAP PO SCH ×3 (09:30→17:55)
[2021-03-01] MEDS: Docusate 100 MG CAP PO SCH ×2 (09:31→20:28)
[2021-03-01] MEDS: HYDROcodone/Acetaminophen 5/325 mg Tablet PO PRN ×2 (09:44→20:32)
[2021-03-01 10:33] LABS: HBSAg Index 0.23 S/CO (0-0.99); Hep B Surf Ag Non-Reactive S/CO (NonReactive)
[2021-03-01] MEDS: Aspirin 81 mg Enteric Coated Tablet PO SCH (14:47)
[2021-03-01] MEDS: Folic Acid/Vit B Comp W-C PO SCH (14:47)
[2021-03-01] MEDS: Allopurinol 100 MG TAB PO SCH (14:47)
[2021-03-01] MEDS: Cholecalciferol 1,000 UNITS (25 MCG) TAB PO SCH (14:47)
[2021-03-01] MEDS: Sodium Chloride 0.9% 1,000 ML IV SCH (17:22)
[2021-03-01] MEDS: Lantus 1000 UNITS/10 ML VIAL SC SCH (20:51)
[2021-03-02] MEDS: HYDROcodone/Acetaminophen 5/325 mg Tablet PO PRN ×5 (00:52→21:20)
[2021-03-02] MEDS: Cholecalciferol 1,000 UNITS (25 MCG) TAB PO SCH (09:08)
[2021-03-02] MEDS: Calcium Acetate 667 MG CAP PO SCH ×3 (09:08→16:23)
[2021-03-02] MEDS: Aspirin 81 mg Enteric Coated Tablet PO SCH (09:08)
[2021-03-02] MEDS: Folic Acid/Vit B Comp W-C PO SCH (09:09)
[2021-03-02] MEDS: Docusate 100 MG CAP PO SCH ×2 (09:09→21:20)
[2021-03-02] MEDS: Allopurinol 100 MG TAB PO SCH (09:09)
[2021-03-02] MEDS: HumaLOG 300 UNITS/3 ML VIAL SC PRN ×2 (11:14→16:24)
[2021-03-02] MEDS: traMADol HCl 50 MG TAB PO PRN (13:26)
[2021-03-02] MEDS: Sodium Chloride 0.9% 1,000 ML IV SCH (15:19)
[2021-03-02] MEDS: Polyethylene Glycol 3350 17 GM Packet PO PRN (16:26)
[2021-03-02] MEDS: Lantus 1000 UNITS/10 ML VIAL SC SCH (21:24)
[2021-03-03] MEDS: HYDROcodone/Acetaminophen 5/325 mg Tablet PO PRN ×4 (03:49→22:32)
[2021-03-03] MEDS: Docusate 100 MG CAP PO SCH ×2 (07:28→20:27)
[2021-03-03] MEDS: Aspirin 81 mg Enteric Coated Tablet PO SCH (07:28)
[2021-03-03] MEDS: Calcium Acetate 667 MG CAP PO SCH ×3 (07:28→17:23)
[2021-03-03] MEDS: Cholecalciferol 1,000 UNITS (25 MCG) TAB PO SCH (07:28)
[2021-03-03] MEDS: Allopurinol 100 MG TAB PO SCH (07:29)
[2021-03-03] MEDS: Folic Acid/Vit B Comp W-C PO SCH (07:29)
[2021-03-03] MEDS: Sodium Chloride 0.9% 1,000 ML IV SCH (15:47)
[2021-03-03] MEDS: traMADol HCl 50 MG TAB PO PRN (17:23)
[2021-03-03] MEDS: Lantus 1000 UNITS/10 ML VIAL SC SCH (20:37)
[2021-03-04] MEDS: HYDROcodone/Acetaminophen 5/325 mg Tablet PO PRN ×2 (03:24→16:32)
[2021-03-04] MEDS: HumaLOG 300 UNITS/3 ML VIAL SC PRN ×3 (05:40→16:54)
[2021-03-04] MEDS: Calcium Acetate 667 MG CAP PO SCH ×3 (09:30→20:35)
[2021-03-04] MEDS: Docusate 100 MG CAP PO SCH (09:31)
[2021-03-04] MEDS: Folic Acid/Vit B Comp W-C PO SCH (09:31)
[2021-03-04] MEDS: Aspirin 81 mg Enteric Coated Tablet PO SCH (09:31)
[2021-03-04] MEDS: Allopurinol 100 MG TAB PO SCH (09:31)
[2021-03-04] MEDS: Cholecalciferol 1,000 UNITS (25 MCG) TAB PO SCH (09:31)
[2021-03-04] MEDS: EPOETIN ALFA-EPBX (ESRD) 4,000 UNIT/ML VIAL SC SCH (13:17)
[2021-03-04] MEDS: Sodium Chloride 0.9% 1,000 ML IV SCH (15:20)
[2021-03-04] MEDS ORDERED: Mag-Al Plus 1200 MG/1200 MG/120 MG/30 ML UDCUP PO PRN (15:29)
[2021-03-04 15:55] VITALS: BP 131/68; TEMP 97.3
== END 2021-03-04 17:15 | DRG 239 ==
LOC: SURG A 02-24 10:12 → SJJU 02-24 14:21 → EDSTATUS 02-24 17:00
PROVIDERS: ADMIT Thoracic Surgery (Cardiothoracic Vascular Surgery); ATTEND Thoracic Surgery (Cardiothoracic Vascular Surgery)
PROC: 5A1D70Z Performance of Urinary Filtration, Intermittent, Less than 6 Hours Per Day (ICD-10-PCS; principal; 2021-02-24)
PROC: 0Y6C0Z2 Detachment at Right Upper Leg, Mid, Open Approach (ICD-10-PCS; 2021-02-24)
DX: E11.52 Type 2 diabetes mellitus with diabetic peripheral angiopathy with gangrene (principal); N18.6 End stage renal disease; I70.261 Atherosclerosis of native arteries of extremities with gangrene, right leg; I13.2 Hypertensive heart and chronic kidney disease with heart failure and with stage 5 chronic kidney disease, or end stage renal disease; D63.1 Anemia in chronic kidney disease; Z66 Do not resuscitate; I25.10 Atherosclerotic heart disease of native coronary artery without angina pectoris; E78.5 Hyperlipidemia, unspecified; I50.9 Heart failure, unspecified; M10.9 Gout, unspecified; N40.0 Benign prostatic hyperplasia without lower urinary tract symptoms; Z99.2 Dependence on renal dialysis; Z79.899 Other long term (current) drug therapy; Z79.82 Long term (current) use of aspirin; Z79.4 Long term (current) use of insulin; Z95.1 Presence of aortocoronary bypass graft
CPT/HCPCS: 36415; 36416; 80048; 85025; 87340; 87635; 88307; 88311; 90935; G0257; J0690; J1200; J1815; J2405; J3010; Q5105; U0003; U0005